=== PATIENT | female | born 1950 | race Caucasian/White ===

== ENCOUNTER 2019-12-15 10:32 | Outpatient (CLI) | payer MEDICARE, OTHER, SELFPAY ==
--- NOTE | 2019-12-15 10:41 | MM_ITS ---
WS: [id number] BILATERAL DIGITAL SCREENING MAMMOGRAPHY WITH CAD CLINICAL INFORMATION: SCREENING HISTORY: Screening mammogram. No current complaints. COMPARISON: TECHNIQUE: Bilateral CC and MLO views. FINDINGS: The breasts are composed of heterogeneous fibroglandular density tissue, which can limit the detectio n of small underlying mass lesions. Lucent center calcifications. Asymmetric density mid to posterior right breast measuring 9 mm. This is best seen on the MLO view. Recommend spot compression views and ultrasound if persistent. Left breast is unchanged. IMPRESSION: MM/[place] [id number] BI-RADS: 0-Incomplete: Need additional imaging evaluation FOLLOW UP: Need Additional Imaging
== END 2019-12-15 10:33 | disposition home or self-care (01) ==
PROVIDERS: Family Provider Internal Medicine; PCP Internal Medicine; Visit Provider Internal Medicine
DX: Z12.31 Encounter for screening mammogram for malignant neoplasm of breast (principal)
CPT/HCPCS: 77067

== ENCOUNTER 2019-12-24 12:09 | Outpatient (CLI) | payer MEDICARE, OTHER, SELFPAY ==
--- NOTE | 2019-12-24 14:31 | US_ITS ---
WS: [id number] RIGHT DIGITAL MAMMOGRAPHY WITH CAD CLINICAL INFORMATION: INCOMPLETE MAMMOGRAM TECHNIQUE: 4 views of the right breast were obtained. FINDINGS: The right breast is composed of heterogeneous fibroglandular density tissue, which can limit the dete ction of small underlying mass lesions. Previously described small asymmetric density inner quadrant right breast is persistent on spot compr ession views but less prominent. Vascular calcification. Ultrasound is pending. ULTRASOUND BREAST RIGHT TECHNIQUE: Ultrasound right breast focused area of concern. CLINICAL INFORMATION: INCOMPLETE MAMMOGRAM COMPARISON: None. FINDINGS: Ultrasound right breast performed from the 12 to 3:00 position. Normal underlying breast parenchyma. No evidence of pathologic mass or lesion. No lesions to target for biopsy. Normal examination. US/US breast RT limited* [id number] IMPRESSION: BI-RADS: 2-Benign FOLLOW UP: 1 Year Follow-up Recommend return to annual screening mammography.
== END 2019-12-24 12:10 | disposition home or self-care (01) ==
LOC: RADSHAW 12:09
PROVIDERS: Family Provider Internal Medicine; PCP Internal Medicine; Visit Provider Internal Medicine
DX: N63.12 Unspecified lump in the right breast, upper inner quadrant (principal); R92.2 Inconclusive mammogram
CPT/HCPCS: 76642; 77065

== ENCOUNTER → 2020-06-04 09:02 | Outpatient (BNVA) | payer MEDICARE, OTHER, SELFPAY | PROVIDERS: Family Provider Internal Medicine; PCP Internal Medicine; Visit Provider Nurse Practitioner Family | DX: N30.01 Acute cystitis with hematuria (principal) | CPT/HCPCS: 80053; 81003; 87077; 87086; 87186 ==

== ENCOUNTER 2021-02-16 10:03 | Outpatient (CLI) | payer MEDICARE, OTHER, SELFPAY ==
--- NOTE | 2021-02-16 10:07 | MM_ITS ---
WS: [id number] BILATERAL DIGITAL SCREENING MAMMOGRAPHY WITH CAD CLINICAL INFORMATION: SCREENING HISTORY: Screening mammogram. No current complaints. COMPARISON: December 15, 2019 TECHNIQUE: Bilateral CC and MLO views. FINDINGS: The breasts are composed of heterogeneous fibroglandular density tissue, which can limit the detectio n of small underlying mass lesions. No suspicious mass, asymmetry, calcifications, or architectural d istortion. No evidence of malignancy. Lucent centered calcifications left breast. Vascular calcificat ion. MM/[place] [id number] IMPRESSION: BI-RADS: 2-Benign FOLLOW UP: 1 Year Follow-up Recommend return to annual screening mammography.
== END 2021-02-16 10:04 | disposition home or self-care (01) ==
LOC: RADSHAW 10:06
PROVIDERS: PCP Internal Medicine; Visit Provider Internal Medicine
DX: Z12.31 Encounter for screening mammogram for malignant neoplasm of breast (principal)
CPT/HCPCS: 77067

== ENCOUNTER 2021-05-11 12:00 | Outpatient (CLI) | payer MEDICARE, OTHER, SELFPAY | END 2021-05-11 12:01 | disposition home or self-care (01) | LOC: SLEEP 05-12 11:51 | PROVIDERS: PCP Internal Medicine; Visit Provider Internal Medicine | DX: G47.33 Obstructive sleep apnea (adult) (pediatric) (principal) | CPT/HCPCS: G0399 ==

== ENCOUNTER → 2021-06-24 08:39 | Outpatient (BNVA) | payer MEDICARE, OTHER, SELFPAY | PROVIDERS: PCP Internal Medicine; Visit Provider Nurse Practitioner | DX: Z20.822 Contact with and (suspected) exposure to COVID-19 (principal) | CPT/HCPCS: 87635 ==

== ENCOUNTER 2022-03-15 09:16 | Outpatient (CLI) | payer MEDICARE, OTHER, SELFPAY ==
--- NOTE | 2022-03-15 09:32 | MM_ITS ---
WS: [id number]: MLO and CC views both breasts. 3D digital tomosynthesis is also included in this exam. Comparison made with prior exam of 09/13/2016, 10/09/2017, 11/05/2018, 12/15/2019 and 02/16/2021. Findings: There was no sign of mass, architectural distortion or suspicious calcification in either breast. Sc attered fibroglandular densities MM/[place] [id number] Impression: BI-RADS: 2-Benign FOLLOW-UP: 1 Year Follow-up This mammogram was also analyzed by the Computer Aided Detection System [employer].
== END 2022-03-15 09:17 | disposition home or self-care (01) ==
LOC: RAD 09:21
PROVIDERS: PCP Internal Medicine; Visit Provider Internal Medicine
DX: Z12.31 Encounter for screening mammogram for malignant neoplasm of breast (principal)
CPT/HCPCS: 77063; 77067

== ENCOUNTER 2023-03-20 09:06 | Outpatient (CLI) | payer MEDICARE, OTHER, SELFPAY ==
--- NOTE | 2023-03-20 09:18 | MM_ITS ---
WS: [id number] BILATERAL SCREENING DIGITAL TOMOSYNTHESIS MAMMOGRAM WITH CAD HISTORY: SCREENING COMPARISON: 03/15/2022, 02/16/2021 and 10/09/2017 Bilateral CC and MLO views with tomosynthesis and synthetic mammography submitted. Computer aided det ection analyzed. Breast composition: There are scattered areas of fibroglandular density. No suspicious masses, microc alcifications or architectural distortion. Benign calcification anterior LEFT breast. MM/[place] [id number] IMPRESSION: BI-RADS: 2-Benign FOLLOW UP: 1 Year Follow-up
== END 2023-03-20 09:07 | disposition home or self-care (01) ==
LOC: RAD 09:13
PROVIDERS: PCP Internal Medicine; Visit Provider Internal Medicine
DX: Z12.31 Encounter for screening mammogram for malignant neoplasm of breast (principal)
CPT/HCPCS: 77063; 77067

== ENCOUNTER → 2023-11-28 10:12 | Outpatient (BNVA) | payer MEDICARE, OTHER, SELFPAY | PROVIDERS: PCP Internal Medicine; Visit Provider Nurse Practitioner Family | DX: M54.2 Cervicalgia (principal); M25.511 Pain in right shoulder | CPT/HCPCS: 72040; 73030 ==

== ENCOUNTER 2024-01-03 11:30 | Outpatient (CLI) | payer MEDICARE, OTHER, SELFPAY ==
--- NOTE | 2024-01-03 11:45 | MR_ITS ---
WS: [id number] MRI RIGHT SHOULDER NONCONTRAST TECHNIQUE: Sagittal T2, coronal T1, T2 and proton density imaging. Axial gradient PDE imaging. CLINICAL INFORMATION: M25.511 - Pain in right shoulder COMPARISON: None. FINDINGS: Moderate to advanced degenerative arthritis AC joint with slight subacromial spurring. Mild downslopi ng acromion. Impingement on the distal supraspinatus. Subacromial and subdeltoid fluid. Advanced degenerative arthritis glenohumeral articulation. Subchondral cystic change involving the gr eater tuberosity. Small bursal surface and intrasubstance tear involving the distal supraspinatus wit h tendinopathy. Chronic thinning of the distal supraspinatus. Normal infraspinatus. Normal teres minor. Chronic thinning of the subscapularis tendon which appears intact. Biceps tendon appears intact within the bicipital groove. Intra-articular biceps tendon appea rs intact. Degenerative fraying of the glenoid labrum. Biceps labral anchor appears intact. IMPRESSION: 1. Moderate to advanced degenerative arthritis AC joint with slight subacromial spurring. Slight imp ingement on the distal supraspinatus. 2. Small amount of subacromial subdeltoid fluid. 3. Partial intrasubstance and bursal surface tear distal supraspinatus extending to the distal anter ior insertion. No tendon retraction. Chronic thinning of the supraspinatus. 4. Rotator cuff is otherwise intact. 5. Biceps tendon appears intact within the bicipital groove. 6. Moderate to advanced degenerative narrowing of the glenohumeral articulation. 7. Intra-articular biceps tendon appears intact.
== END 2024-01-03 11:31 | disposition home or self-care (01) ==
LOC: RAD 11:30
PROVIDERS: Absent Provider Internal Medicine; PCP Internal Medicine; Visit Provider Nurse Practitioner Family
DX: M19.011 Primary osteoarthritis, right shoulder (principal); R29.898 Other symptoms and signs involving the musculoskeletal system; M75.111 Incomplete rotator cuff tear or rupture of right shoulder, not specified as traumatic
CPT/HCPCS: 73221

== ENCOUNTER 2024-03-31 11:14 | Outpatient (CLI) | payer MEDICARE, OTHER, SELFPAY ==
--- NOTE | 2024-03-31 11:19 | MM_ITS ---
WS: [id number] BILATERAL 3D TOMOSYNTHESIS DIGITAL SCREENING MAMMOGRAPHY WITH CAD CLINICAL INFORMATION: SCREENING HISTORY: Screening mammogram. No current complaints. COMPARISON: 2022 TECHNIQUE: Bilateral CC and MLO views. FINDINGS: The breasts are composed of heterogeneous fibroglandular density tissue, which can limit the detectio n of small underlying mass lesions. No suspicious mass, asymmetry, calcifications, or architectural d istortion. No evidence of malignancy. Lucent centered calcification LEFT breast. A few incidental pun ctate calcifications. MM/[place] [id number] IMPRESSION: BI-RADS: 2-Benign FOLLOW UP: 1 Year Follow-up Recommend return to annual screening mammography.
== END 2024-03-31 11:15 | disposition home or self-care (01) ==
LOC: RAD 11:14
PROVIDERS: PCP Internal Medicine; Visit Provider Internal Medicine
DX: Z12.31 Encounter for screening mammogram for malignant neoplasm of breast (principal); R92.323 Mammographic fibroglandular density, bilateral breasts; R92.333 Mammographic heterogeneous density, bilateral breasts
CPT/HCPCS: 77063; 77067

== ENCOUNTER 2025-04-07 09:35 | Outpatient (CLI) | payer MEDICARE, OTHER, SELFPAY ==
--- NOTE | 2025-04-07 09:39 | MM_ITS ---
WS: [id number] BILATERAL 3D TOMOSYNTHESIS DIGITAL SCREENING MAMMOGRAPHY WITH CAD CLINICAL INFORMATION: SCREENING HISTORY: Screening mammogram. No current complaints. COMPARISON: 2023 TECHNIQUE: Bilateral CC and MLO views. FINDINGS: The breasts are composed of heterogeneous fibroglandular density tissue, which can limit the detection of small underlying mass lesions. No suspicious mass, asymmetry, calcifications, or architectural distortion. No evidence of malignancy. Lucent centered calcification LEFT breast. A few incidental punctate calcifications. MM/MM [facility] tomosynthesis [id number] IMPRESSION: DENSITY: The breasts are heterogeneously dense, which may obscure small masses. BI-RADS: 2 - Benign FOLLOW UP: 1 Year Follow-up Recommend return to annual screening mammography.
== END 2025-04-07 09:36 | disposition home or self-care (01) ==
LOC: RAD 09:37
PROVIDERS: PCP Internal Medicine; Visit Provider Family Medicine
DX: Z12.31 Encounter for screening mammogram for malignant neoplasm of breast (principal); R92.333 Mammographic heterogeneous density, bilateral breasts; R92.1 Mammographic calcification found on diagnostic imaging of breast
CPT/HCPCS: 77063; 77067

== ENCOUNTER 2025-10-10 16:09 | Emergency (ER) | payer MEDICARE, OTHER, SELFPAY ==
[2025-10-10] VITALS (7 sets, daily range): BP systolic 124–155; BP diastolic 62–82; PULSE 69–80; RESP 16–21; TEMP 36.7; O2SAT 95–100; BMI 31.6
--- OUTSIDE RECORDS SUMMARY | 2025-10-10 16:15 | XMS_ITS | Encounter Summary ---
Author Organization [facility] Address [address] [place] [address] Care Team Providers Care Electrician Outside Name Role Phone Cecilia Ford MD Primary Care Provid er Encounter Details Date Type Department Care Team (Latest Contact Info) Description 10/26/2006 Outpatient Historical [facility] Internal Medicine- [address] [address] [place] [id number] Cecilia Ford MD [address] [place] [address] Other Malaise and Fatigue (Primary Dx); Palpitations Social History Tobacco Use Types Packs/Day Years Used Date Smoking Tobacco: Never Assessed Comments Unknown Sex and Gender Information Value Date Recorded Sex Assigned at Not on file Legal Sex Female 6:34 AM [employer] Gender Identity Not on file Sexual Orientation Not on file documented as of this encounter Plan of Treatment Not on file documented as of this encounter Visit Diagnoses Diagnosis Other malaise and fatigue- Primary Palpitations documented in this encounter Care Teams Electrician Outside Relationship Specialty Start Date End Date Cecilia Ford MD PCP - General 08/07/03 documented as of this encounter
--- OUTSIDE RECORDS SUMMARY | 2025-10-10 16:15 | XMS_ITS | Data Portability ---
Author Organization NABIL Adria Avalos [facility], [facility], [facility] Address [address] [address] Care Team Providers Care Real Estate Clerk Name Role Phone DIAMOND HAGEN Primary Care Provider Assessment Encounter Date Assessment Date Assessment LastModified by Organization Details LastModified Time 07/01/2025 07/01/2025 Discussed kidney disease. Previously on one of her labs she did have a GFR less than 60 but this has improved with her most recent lab work. Patient was reassured. [email or web address] Not available 07/05/2025 22:15:38 Plan of Treatment Reminders Order Date Submit Date Provider Last Modified By Organization Details Last Modified Time Details Appointments OFFICE VISIT 15 2025 10:00A M Diamond Hagen MD Not available Not available Not available Lab hemoglobi n A1C/hemog lobin total, QN, blood 2024 025 [facility], [address], [facility] 1, [place], [address], 07/01/2025 11:54:21 hemoglobi n A1C/hemog lobin total, QN, blood 2024 025 [facility], [address] [facility], [facility] 1, [place], [address], 03/30/2025 12:25:15 microalbu min/creat inine, mass ratio, urine 2024 025 [facility]jo [facility], [address] [place] [address] [address], [address], [place], [address], 03/31/2025 05:52:03 CMP, serum or plasma 2024 025 [facility], [address], [address], [place], [address], 03/30/2025 12:25:07 hemoglobi n A1C/hemog lobin total, QN, blood 2023 024 [facility], [address], [address], [place], [address], 09/17/2024 10:21:28 CMP, serum or plasma 2023 024 [facility], [address], [address], [place], [address], 09/17/2024 10:42:20 lipid panel, blood 2023 024 [facility], [address], [address], [place], [address], 09/17/2024 10:42:22 CBC 2023 024 [facility], [address], [address], [place], [address], 09/17/2024 10:14:21 thyrotrop in, QN, serum or plasma 2023 024 [facility], [address], [address], [place], [address], 09/17/2024 11:37:22 Referral None recorded. Procedures None recorded. Surgeries None recorded. Imaging None recorded. Medication Orders Mounjaro 2.5 mg/0.5 mL subcutane ous pen injector 2024 025 [facility], [address], [place], [address], 06/18/2025 11:58:38 Patient TargetsNo targets recorded. Patient Instructions Encounter Date Encounter Id Patient Instructions Last Modified By Organization Details Last Modified Time 09/29/2024 [id number] struggles with anxiety; has tried regularly to get off alprazolam and can't; has been on xanax 40 years; will continue reviewed labs and a1c improved bp controlled she would like to establish with Dr. Hieu [email or web address] Not available 09/29/2024 12:18:01 Reason for Referral None Reported. Results Created Date Observation Date Name Description Value Unit Range Abnormal Flag Note LastModifiedBy Organization Detail LastModifiedTime 09/17/2009/17/2024 CBC WBC 6.4 x10 4.0-10 .5 Not Available [facility] [address] [facility] 1, [place], [address], 09/17/2024 10:14:21 09/17/20 24 09/17/2024 CBC RBC 4.44 x10 3.50-5 .50 Not Available [facility] [address] [facility] 1, [place], [address], 09/17/2024 10:14:21 09/17/20 24 09/17/2024 CBC HGB 13.0 g/dL 12.0-1 6.0 Not Available [facility] [address] [facility] 1, [place], [address], 09/17/2024 10:14:21 09/17/20 24 09/17/2024 CBC HCT 37.7 % 37.0-4 7.0 Not Available [facility] [address] [facility] 1, [place], [address], 09/17/2024 10:14:21 09/17/20 24 09/17/2024 CBC MCV 85.0 fL 80.0-9 9.9 Not Available [facility] [address] [facility] 1, [place], [address], 09/17/2024 10:14:21 09/17/20 24 09/17/2024 CBC MCH 29.3 pg 27.0-3 2.0 Not Available [facility] [address] [facility] [address] [facility] 1, [place], [address], 09/17/2024 10:14:21 09/17/20 24 09/17/2024 CBC MCHC 34.5 g/dL 32.0-3 6.0 Not Available [facility] [address] [facility] 1, [place], [address], 09/17/2024 10:14:21 09/17/20 24 09/17/2024 CBC RDW 14.4 % 11.5-1 4.5 Not Available [facility] [address] [facility], [place], [address], 09/17/2024 10:14:21 09/17/20 24 09/17/2024 CBC plt 216.9 x10 140.0- 451.0 Not Available [facility] [address] [facility] 1, [place], [address], 09/17/2024 10:14:21 09/17/20 24 09/17/2024 CBC lymphocytes % 23.4 % 20.0-5 0.0 Not Available [facility] [address] [facility] 1, [place], [address], 09/17/2024 10:14:21 09/17/20 24 09/17/2024 CBC granulcytes % 63.2 % 30.0-7 0.0 Not Available [facility] [address] [facility] 1, [place], [address], 09/17/2024 10:14:21 09/17/20 24 09/17/2024 CBC monocytes % 9.9 % 2.0-16 .0 Not Available [facility] [address] [facility] [address] [facility] 1, [place], [address], 09/17/2024 10:14:21 09/17/20 24 09/17/2024 CBC granulcytes# 4.1 x10 Not Dedra ilable [facility] [address] [facility] 1, [place], [address], 09/17/2024 10:14:21 09/17/20 24 09/17/2024 CBC lymphocytes # 1.5 x10 Not Available [facility] [address] [facility] 1, [place], [address], 09/17/2024 10:14:21 09/17/20 24 09/17/2024 CBC monocytes # 0.6 x10 Not Avai lable [facility] [address] [facility], [place], [address], 09/17/2024 10:14:21 09/17/20 24 09/17/2024 HBA1C hemaglobin A1C 6.5 4.2-6. 5 Not Available [facility] [address] [facility] 1, [place], [address], 09/17/2024 10:21:28 09/17/20 24 09/17/2024 CMP (FEMA LE) glucose 113.0 mg/dL 60.0-9 9.0 high Not Available [facility] [address] [facility] 1, [place], [address], 09/17/2024 10:42:20 09/17/20 24 09/17/2024 CMP (FEMA LE) BUN (blood urea nitrogen) 13.0 mg/dL 10.0-2 6.0 Not Available [facility] [address] [facility] 1, [place], [address], 09/17/2024 10:42:20 09/17/20 24 09/17/2024 CMP (FEMA LE) creatinine (serum) 1.0 mg/dL 0.4-1. 5 Not Available [facility] [address] [facility], [place], [address], 09/17/2024 10:42:20 09/17/20 24 09/17/2024 CMP (FEMA LE) BUN/creatini ne ratio 13.00 ratio Not Available [facility] [address] [facility] 1, [place], [address], 09/17/2024 10:42:20 09/17/20 24 09/17/2024 CMP (FEMA LE) eGFR calculated 57.9 Not Available [facility] [address] [facility] 1, [place], [address], 09/17/2024 10:42:20 09/17/20 24 09/17/2024 CMP (FEMA LE) total protein 7.4 g/dL 6.0-8. 5 Not Available [facility] [address] [facility] 1, [place], [address], 09/17/2024 10:42:20 09/17/20 24 09/17/2024 CMP (FEMA LE) total bilirubin 0.7 mg/dL 0.2-1. 3 Not Available [facility] [address] [facility] 1, [place], [address], 09/17/2024 10:42:20 09/17/20 24 09/17/2024 CMP (FEMA LE) albumin 4.4 g/dL 3.5-5. 5 Not Available [facility] [address] [facility], [place], [address], 09/17/2024 10:42:20 09/17/20 24 09/17/2024 CMP (FEMA LE) globulin 3.0 calc Not Available [facility] [address] [facility], [place], [address], 09/17/2024 10:42:20 09/17/20 24 09/17/2024 CMP (FEMA LE) AST (SGOT) 26.0 U/L 0.0-46 .0 Not Available [facility] [address] [facility], [place], [address], 09/17/2024 10:42:20 09/17/20 24 09/17/2024 CMP (FEMA LE) altv (SGPT) 27.0 U/L 13.0-6 9.0 normal Not Available [facility] [address] [facility], [place], [address], 09/17/2024 10:42:20 09/17/20 24 09/17/2024 CMP (FEMA LE) A/G ratio 1.5 ratio Not Available [facility] [address] [facility] 1, [place], [address], 09/17/2024 10:42:20 09/17/20 24 09/17/2024 CMP (FEMA LE) ALP phos 81.0 U/L 30.0-1 40.0 normal Not Available [facility] [address] [facility] 1, [place], [address], 09/17/2024 10:42:20 09/17/20 24 09/17/2024 CMP (FEMA LE) calcium 9.6 mg/dL 8.4-10 .5 Not Available [facility] [address] [facility] 1, [place], [address], 09/17/2024 10:42:20 09/17/20 24 09/17/2024 CMP (FEMA LE) sodium 137.0 mmol/ L 136.0- 145.0 Not Available [facility] [address] [facility] 1, [place], [address], 09/17/2024 10:42:20 09/17/20 24 09/17/2024 CMP (FEMA LE) potassium 4.4 mmol/ L 3.5-5. 1 Not Available [facility] [address] [facility], [place], [address], 09/17/2024 10:42:20 09/17/20 24 09/17/2024 CMP (FEMA LE) chloride 102.0 mmol/ L 98.0-1 10.0 normal Not Available [facility] [address] [facility] 1, [place], [address], 09/17/2024 10:42:20 09/17/20 24 09/17/2024 CMP (FEMA LE) C02 31.0 mmol/ L 22.0-3 1.0 Not Available [facility] [address] [facility] 1, [place], [address], 09/17/2024 10:42:20 09/17/20 24 09/17/2024 CMP (FEMA LE) anion gap 4.0 calc Not Available [facility] [address] [facility] 1, [place], [address], 09/17/2024 10:42:20 09/17/20 24 09/17/2024 CMP (FEMA LE) osmolality 284.0 calc Not Available [facility] [address] [facility] 1, [place], [address], 09/17/2024 10:42:20 09/17/20 24 09/17/2024 LIPID PROFI LE (FEMA LE) cholesterol 200.0 mg/dL 0.0-20 0.0 Not Available [facility] [address] [facility], [place], [address], 09/17/2024 10:42:22 09/17/20 24 09/17/2024 LIPID PROFI LE (FEMA LE) trig 152.0 mg/dL 0.0-15 0.0 high Not Available [facility] [address] [address], [place], [address], 09/17/2024 10:42:22 09/17/20 24 09/17/2024 LIPID PROFI LE (FEMA LE) HDL - direct 60.0 mg/dL >40.0 Not Available [facility] [address] [address], [place], [address], 09/17/2024 10:42:22 09/17/20 24 09/17/2024 LIPID PROFI LE (FEMA LE) VLDL - direct 30.4 mg/dL Not Available [facility] [address] [address], [place], [address], 09/17/2024 10:42:22 09/17/20 24 09/17/2024 LIPID PROFI LE (FEMA LE) LDL - direct 109.6 mg/dL 0.0-13 0.0 Not Available [facility] [address] [address], [place], [address], 09/17/2024 10:42:22 09/17/20 24 09/17/2024 TSH TSH 2.07 uIU/m L 0.49-3 .82 Not Available [facility] [address] [address], [place], [address], 09/17/2024 11:37:22 03/30/20 25 03/30/2025 CMP (FEMA LE) glucose 117.0 mg/dL 60.0-9 9.0 high Not Available [facility] [address] [address], [place], [address], 03/30/2025 12:25:07 03/30/20 25 03/30/2025 CMP (FEMA LE) BUN (blood urea nitrogen) 15.0 mg/dL 10.0-2 6.0 Not Available [facility] [address] [facility], [place], [address], 03/30/2025 12:25:03/30/20 25 03/30/2025 CMP (FEMA LE) creatinine (serum) 0.9 mg/dL 0.4-1. 5 Not Available [facility] [address] [facility] 1, [place], [address], 03/30/2025 12:25:03/30/20 25 03/30/2025 CMP (FEMA LE) BUN/creatini ne ratio 16.67 ratio Not Available [facility] [address] [facility] 1, [place], [address], 03/30/2025 12:25:03/30/20 25 03/30/2025 CMP (FEMA LE) eGFR calculated 65.4 Not Available [facility] [address] [facility] 1, [place], [address], 03/30/2025 12:25:03/30/20 25 03/30/2025 CMP (FEMA LE) total protein 7.2 g/dL 6.0-8. 5 Not Available [facility] [address] [address], [place], [address], 03/30/2025 12:25:03/30/20 25 03/30/2025 CMP (FEMA LE) total bilirubin 0.8 mg/dL 0.2-1. 3 Not Available [facility] [address] [address], [place], [address], 03/30/2025 12:25:03/30/20 25 03/30/2025 CMP (FEMA LE) albumin 4.1 g/dL 3.5-5. 5 Not Available [facility] [address] [address], [place], [address], 03/30/2025 12:25:03/30/20 25 03/30/2025 CMP (FEMA LE) globulin 3.1 calc Not Available [facility] [address] [facility] 1, [place], [address], 03/30/2025 12:25:03/30/20 25 03/30/2025 CMP (FEMA LE) AST (SGOT) 21.0 U/L 0.0-46 .0 Not Available [facility] [address] [facility] 1, [place], [address], 03/30/2025 12:25:03/30/20 25 03/30/2025 CMP (FEMA LE) altv (SGPT) 21.0 U/L 13.0-6 9.0 normal Not Available [facility] [address] [facility] 1, [place], [address], 03/30/2025 12:25:03/30/20 25 03/30/2025 CMP (FEMA LE) A/G ratio 1.3 ratio Not Available [facility] [address] [facility] 1, [place], [address], 03/30/2025 12:25:03/30/20 25 03/30/2025 CMP (FEMA LE) ALP phos 74.0 U/L 30.0-1 40.0 normal Not Available [facility] [address] [facility] 1, [place], [address], 03/30/2025 12:25:03/30/20 25 03/30/2025 CMP (FEMA LE) calcium 9.6 mg/dL 8.4-10 .5 Not Available [facility] [address] [facility], [place], [address], 03/30/2025 12:25:07 03/30/20 25 03/30/2025 CMP (FEMA LE) sodium 137.0 mmol/ L 136.0- 145.0 Not Available [facility] [address] [facility] 1, [place], [address], 03/30/2025 12:25:03/30/20 25 03/30/2025 CMP (FEMA LE) potassium 4.3 mmol/ L 3.5-5. 1 Not Available [facility] [address] [facility], [place], [address], 03/30/2025 12:25:03/30/20 25 03/30/2025 CMP (FEMA LE) chloride 104.0 mmol/ L 98.0-1 10.0 normal Not Available [facility] [address] [facility] 1, [place], [address], 03/30/2025 12:25:03/30/20 25 03/30/2025 CMP (FEMA LE) C02 29.0 mmol/ L 22.0-3 1.0 Not Available [facility] [address] [facility], [place], [address], 03/30/2025 12:25:07 03/30/20 25 03/30/2025 CMP (FEMA LE) anion gap 4.0 calc Not Available [facility] [address] [facility] 1, [place], [address], 03/30/2025 12:25:03/30/20 25 03/30/2025 CMP (FEMA LE) osmolality 284.9 calc Not Available [facility] [address] [facility] [address] [facility] 1, [place], [address], 03/30/2025 12:25:03/30/20 25 03/30/2025 HBA1C hemaglobin A1C 6.2 4.2-6. 5 Not Available [facility] [address], [place], [address], 03/30/2025 12:25:15 03/30/20 25 03/31/2025 ALBUM IN, RANDO M URINE W/CRE ATINI NE creatinine, random urine 117 mg/dL 20-275 normal Not Available [facility] [address] [place], [address], 03/31/2025 05:52:03 03/30/20 25 03/31/2025 ALBUM IN, RANDO M URINE W/CRE ATINI NE albumin, urine 0.7 mg/dL see note: normal Refer ence Range : Refer ence Range Not estab lishe d Not Available [address] [address] [place], [address], 03/31/2025 05:52:03 03/30/20 25 03/31/2025 ALBUM IN, RANDO M URINE W/CRE ATINI NE albumin/crea tinine ratio, random urine 6 mg/g_ creat <30 normal The ADA defin es abnor malit ies in album in excre tion as follo ws: Album inuri a Categ ory Resul t (mg/g creat inine ) Geni l to Mildl y incre ased <30 Moder ately incre ased 30-29 9 Sever domenic incre ased > OR = 300 The ADA recom mends that at least two of three speci mens colle cted withi n a 3-6 month perio d be abnor mal befor e consi mykel g a patie nt to be withi n a diagn ostic categ ory. Not Available [address] [address] [place], [address], 03/31/2025 05:52:03 07/01/2007/01/2025 HBA1C hemaglobin A1C 6.1 4.2-6. 5 Not Available [facility] [address] [facility] [address], [place], [address], 07/01/2025 11:54:20 04/02/20 25 01/03/2024 MRI, shoul jamee, w/o contr ast No observ ation record ed. [email or web address] Not Available 04/03 17:42:52 04/07/20 25 04/07/2025 MAMMO , scree miki, digit al, bilat eral No observ ation record ed. [email or web address] [place] [address] [address] [place], [address], 04/08/2025 16:15:42 Result Notes None recorded. Problems Name Problem SNOMED Code Status Onset Date Resolution Date Notes Provider Name and Address Organization Details Recorded Time Narendranurismyrna rico type IIa hyperlipop roteinemia 346772182 Active 2021 HYPERCHOLE STEROLEMIA ; Recorded 08/02/2022 10:42AM by Josefina Mahoney RN, Office Visit; Promoted; acuity set as *; PASCUAL fay [facility] 3 15:11:50 Fibromyalg ia 089062314 Active 2022 Fibromyalg ia; 12/06/2022 10:41AM by Josefina Mahoney RN, Office Visit; Promoted; acuity set as *; PASCUAL fay [facility] 3 15:12:27 Hyperchole sterolemia 06032104 Active 2022 Hyperchole sterolemia ; 12/06/2022 10:41AM by Josefina Mahoney RN, Office Visit; Promoted; acuity set as *; PASCUAL fay [facility] 3 15:12:06 Irritable bowel syndrome 22101834 Active 2022 IRRITABLE BOWEL SYNDROME; Recorded 12/06/2022 10:41AM by Josefina Mahoney RN, Office Visit; Promoted; acuity set as *; PASCUAL fay [facility] 3 15:12:32 Anxiety 33826823 Active 2022 PASCUAL LINNOswaldo fay [facility] 3 15:11:39 Atrial fibrillati on 61450249 Active 2022 PASCUAL fay, [facility] 3 15:11:36 Essential hypertensi on 74817084 Active 2023 Diamond Hagen MD [address] [place] [address] 5, [facility] 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 5 14:07:08 Type 2 diabetes mellitus 54049593 Active 2024 Diamond Hagen MD [address] [place] [address] 5, [facility] 5 14:07:02 Recurrent major depression in partial remission 32947010 Active 2024 Diamond Hagen MD [address] [place] [address] 5, [facility] 5 14:11:13 Digital mucous cyst 464678715 Active 2024 Diamond Hagen MD [address] [place] [address] 5, [facility] 5 17:34:23 Well controlled type 2 diabetes mellitus 536964581 Active 2024 Diamond Hagen MD [address] [place] [address] 5, [facility] 5 11:13:01 Problem Notes None recorded. Procedures Surgical History Date Name Laterality Status Provider Name and Address Organization Details Recorded Time Hysterectomy completed PASCUAL HAIR [facility] 06/15/2023 15:12:50 Imaging Results None recorded. Procedure Notes None recorded. Medical Equipment None Reported. Allergies Allergen ID Allergen Name Allergen Category Reaction Reaction Severity Criticality Documentation Date Start Date Code Code System Note Provider Name and Address Organization Details Recorded Time 63060 Substance with sulfonami de structure and antibacte rial mechanism of action (substanc e) medicatio n rash mild low 05/19/2023 [id number] SNOMED [facility] 4 14:06:06 Medications Name Sig Start Date Stop Date Status Note LastModified by Organization Details LastModified Time imipramin e 50 mg tablet TAKE ONE TABLET BY MOUTH EVERY DAY AT BEDTIME 2024 active Not Available Not Available Not Avai lable prednison e 10 mg tablet 09/29 completed Not Available Not Available Not Available doxycycli ne hyclate 100 mg capsule 09/29 completed Not Available Not Available Not Available ketoconaz ole 2 % shampoo APPLY TOPICALL Y TO FACE, SCALP AND EARS LEAVE ON FOR 10 TO 20 MINUTES, THEN RINSE IN SHOWER. USE ONE TO TWO TIMES WEEKLY 10/23 completed Not Available Not Available Not Available atorvasta tin 10 mg tablet TAKE ONE TABLET BY MOUTH DAILY 2024 active Not Available Not Available Not Avai lable azithromy juan 250 mg tablet TAKE 2 TABLETS (500 MG) BY ORAL ROUTE ONCE DAILY FOR 1 DAY THEN 1 TABLET (250 MG) BY ORAL ROUTE ONCE DAILY FOR 4 DAYS 03/30 completed Not Available Not Available Not Available metoprolo l succinate ER 50 mg tablet,ex tended release 24 hr TAKE THREE TABLETS BY MOUTH DAILY active Not Available Not Available No t Available prednison e 20 mg tablet 09/29 completed Not Available Not Available Not Available metoprolo l succinate ER 100 mg tablet,ex tended release 24 hr TAKE TWO TABLETS BY MOUTH EVERY DAY 09/29 completed Not Available Not Available Not Available tramadol 50 mg tablet TAKE ONE TABLET BY MOUTH EVERY 6 HOURS NEEDED FOR PAIN 08/30 completed Not Available Not Available Not Available prednison e 10 mg tablets in a dose pack TAKE BY MOUTH DIRECTED PER PACKAGE INSTRUCT IONS 09/29 completed Not Available Not Available Not Available cyclopent olate 1 % eye drops PLACE 1 DROP IN THE RIGHT EYE TWICE DAILY 08/30 completed Not Available Not Available Not Available oxycodone -acetamin ophen 5 mg-325 mg tablet TAKE 1 BY MOUTH GIVE 6 HOME NEEDED PAIN 08/30 completed Not Available Not Available Not Available alprazola m 0.25 mg tablet TAKE ONE TABLET BY MOUTH FOUR TIMES DAILY NEEDED active Not Available Not Available No t Available prednisol one acetate 1 % eye drops,todd pension PLACE ONE DROP IN THE RIGHT EYE TWICE DAILY 08/30 completed Not Available Not Available Not Available diclofena c sodium 75 mg tablet,de layed release TAKE ONE TABLET BY MOUTH TWICE DAILY 03/30 completed Not Available Not Available Not Available fluocinon dora 0.05 % topical solution APPLY TOPICALL Y TO ITCHY AREAS OF SCALP AND BEHIND EARS TWICE DAILY NEEDED 07/01 completed Not Available Not Available Not Available imipramin e 10 mg tablet TAKE ONE TABLET BY MOUTH AT BEDTIME active Not Available Not Available No t Available atropine 1 % eye drops PLACE 1 DROP IN THE RIGHT EYE TWICE DAILY 08/30 completed Not Available Not Available Not Available fluticaso ne propionat e 50 mcg/actua tion nasal spray,todd pension at bedtime 08/30 completed Not Available Not Available Not Available imipramin e 25 mg tablet Take 2 tablets twice a day by oral route for 90 days. 08/30 completed Not Available Not Available Not Available atorvasta tin daily 09/10 completed cs/smf; 14392; Recorded 11/01/19 23 3:30PM by Sandy Mahoney RN (Authori patrice through Carter Bueno DO), Refill Request; Refill Quantity : 30; Tablet; Not Available Not Available Not Available metoprolo l tartrate three times daily 09/10 completed CS/sk; 97341; Recorded 01/26/20 22 9:06AM by Tania St (Authori zed through Carter Bueno DO), Office Visit; Refill Quantity : 60; Tablet; Not Available Not Available Not Available imipramin e HCl q hs 09/10 completed DOC VO JR/bh; 173; Recorded 12/12/19 12:24PM by Kisha Carmen RN (Authori zed through Ramírez Licea MD), Refill Request; Refill Quantity : 0; Not Available Not Available Not Available Claritin daily 08/30 completed otc prn Not Available Not Available Not Available alprazola m four times daily, as needed 09/10 completed Recorded 01/03/20 2:35PM by Darrius Carpio DO, Refill Request; Refill Quantity : 120; Tablet; Not Available Not Available Not Available peg 3350-elec trolytes 236 gram-22.7 4 gram-6.74 gram-5.86 gram solution 03/30 completed Not Available Not Available Not Available Ozempic 0.25 mg or 0.5 mg (2 mg/1.5 mL) subcutane ous pen injector INJECT 0.25 MG UNDER SKIN WEEKLY FOR FOUR WEEKS, THEN INCREASE TO 0.5 MG UNDER SKIN WEEKLY 08/30 completed 0.25 weekly x4 weeks then increase 0.5 weekly Not Available Not Available Not Available Mounjaro 2.5 mg/0.5 mL subcutane ous pen injector Inject 2.5 mg every week by subcutan eous route. 04/07 completed pt did not tolerate it well and Dr. Hagen said pts a1c was okay for pt to just do diabetic diet Not Available Not Available Not Available Ozempic 0.25 mg or 0.5 mg (2 mg/3 mL) subcutane ous pen injector INJECT 0.25 MG UNDER SKIN WEEKLY FOR FOUR WEEKS, THEN INCREASE TO 0.5 MG UNDER SKIN WEEKLY 08/30 completed 0.25 weekly x4 weeks then increase 0.5 weekly Not Available Not Available Not Available Vitals Date Recorded Body height Body mass index (BMI) Body weight Oxygen saturation Heart rate Respiratory rate Body temperature Systolic And Diastolic Provider Name and Address Organization Details Last Updated DateTime 5 163.83 cm 34.5 kg/m2 12494.8 4 g 95 % 80 /min 16 /min 98.2 [degF] 150/90 mm[Hg] Samantha Moscoso [facility] 5 17:58:25 Date Recorded Body height Body mass index (BMI) Body weight Body temperature Oxygen saturation Heart rate Systolic And Diastolic Provider Name and Address Organization Details Last Updated DateTime 5 163.83 cm 34.8 kg/m2 89526.0 3 g 97.1 [degF] 97 % 81 /min 132/70 mm[Hg] [facility] 5 10:58:32 Date Recorded Body height Body mass index (BMI) Body weight Body temperature Oxygen saturation Heart rate Systolic And Diastolic Provider Name and Address Organization Details Last Updated DateTime 5 163.83 cm 32.8 kg/m2 76971.9 2 g 97.3 [degF] 97 % 76 /min 124/86 mm[Hg] [facility] 5 10:56:42 Date Recorded Body height Body mass index (BMI) Body weight Respiratory rate Heart rate Oxygen saturation Systolic And Diastolic Provider Name and Address Organization Details Last Updated DateTime 4 163.83 cm 34.8 kg/m2 90685.0 3 g 20 /min 89 /min 94 % 122/64 mm[Hg] JOSEFINA MAHONEY [facility] 4 11:53:34 Social History Question Answer Notes LastModified by Organizat ion Details LastModified Time Tobacco Smoking Status Never Smoker Samantha Danis [facility] 10/23/2024 17:54:03 What Is Your Level Of Caffeine Consumption? Moderate Information not available 03/30/2025 What Was The Date Of Your Most Recent Tobacco Screening? 07/01/2025 [email or web address] Information not available 07/01/2025 Sex: Unknown Functional Status Question Answer Note LastModified by Organization D etails LastModified Time What is your level of alcohol consumption? None Information not available 03/30/2025 Mental Status None recorded. Family History Nothing Reported. Medical History No medical history recorded. Gynecological HistoryNo gynecological history recorded. Obstetrics History GPAL:G 0 P 0 0 0 0 Immunizations Vaccine Type Date Status Note Provider Nam e and Address Organization Details Recorded Time Influenza, split virus, trivalent, preservative 5 completed Not Available [facility] 05/19/2023 02:49:38 Influenza, split virus, trivalent, preservative 6 completed Not Available [facility] 05/19/2023 02:49:38 Influenza, split virus, trivalent, preservative 7 completed Not Available [facility] 05/19/2023 02:49:38 Pneumococcal conjugate PCV 13 7 completed Not Available [facility] 05/19/2023 02:49:38 pneumococcal polysaccharide PPV23 8 completed Not Available [facility] 05/19/2023 02:49:38 Influenza, split virus, trivalent, preservative 1 completed Not Available [facility] 05/19/2023 02:49:38 zoster recombinant 2 completed Tamera fay [facility] 05/17/2024 14:05:58 zoster recombinant 2 completed Tamera fay [facility] 05/17/2024 14:05:58 Influenza, high-dose, quadrivalent, PF 2 completed Tamera Plyun null [facility] 05/17/2024 14:05:58 Influenza, high-dose, quadrivalent, PF 1 completed Tamera fay [facility] 05/17/2024 14:05:58 Influenza, adjuvanted, quadrivalent, PF 3 completed Tamera fay [facility] 05/17/2024 14:05:58 COVID-19, mRNA, LNP-S, PF, 100 mcg/0.5mL dose or 50 mcg/0.25mL dose 1 completed [facility] 05/17/2024 14:05:58 COVID-19, mRNA, LNP-S, PF, 100 mcg/0.5mL dose or 50 mcg/0.25mL dose 1 completed [facility] 05/17/2024 14:05:58 Tdap 4 completed Tamera Pliler [facility] 05/17/2024 14:05:58 zoster live 3 completed Tamera Pliler [facility] 05/17/2024 14:05:58 Influenza, high-dose, trivalent, PF 8 completed Tamera Pliler [facility] 05/17/2024 14:05:58 Influenza, high-dose, trivalent, PF 9 completed Tamera Pliler [facility] 05/17/2024 14:05:58 Influenza, split virus, trivalent, preservative 4 completed Tamera Pliler [facility] 05/17/2024 14:05:58 Influenza, split virus, trivalent, preservative 3 completed [place] Pliler [facility] 05/17/2024 14:05:58 Influenza, high-dose, trivalent, PF 4 completed Not Available [facility] 07/01/2025 10:48:08 Past Encounters Encounter ID Performer Location Encounter Start Date Encounter Closed Date Diagnosis/Indication Diagnosis SNOMED-CT Code Diagnosis ICD10 Code Diagnosis IMO Codes Diagnosis Note [id number] Carter Bueno DO [facility] ([facility]) [address] [place] [address] 5 03/05/2023 09:56:58 03/05/2023 18:41:13 Type 2 diabetes mellitus without complication 231917696 E11.9 Atrial fibrillation 4943 6004 I48.91 Hyperlipidemia 22022250 E78.00 Anxiety 08922268 F41.9 Depressive disorder 3548 9007 F32.A [id number] Carter Ximena [facility] ([facility]) [address] [place] [address] 5 09/03/2023 10:29:07 09/04/2023 10:41:11 Hypercholesterolemia 48285594 E78.00 Type 2 jeannine betes mellitus without complication 664745644 E11.9 Depressive disorder 3548 9007 F32.A [id number] Carter Ximena [facility]) [address] [place] [address] 5 09/10/2023 10:22:59 09/10/2023 14:32:30 Type 2 diabetes mellitus without complication 944178012 E11.9 Anxiety 62620527 F41.9 [id number] Carter Ximena [facility]) [address] [place] [address] 5 03/18/2024 10:51:56 03/19/2024 09:46:07 Type 2 diabetes mellitus without complication 082590874 E11.9 [id number] Carter Ximena [facility]) [address] [place] [address] 5 03/24/2024 10:31:57 03/24/2024 13:44:04 Anxiety 18951739 F41.9 Atrial fibrillation 4943 6004 I48.91 Depressive disorder 3548 9007 F32.A Hypercholesterolemia 136 64112 E78.00 Type 2 jeannine betes mellitus without complication 364091085 E11.9 Essential hypertension 69243769 I10 Benzodiaze pine dependence 728754852 F13.20 [id number] Carter Bueno [facility] ([facility]) [address] [place] [address] 5 09/17/2024 09:57:02 09/22/2024 09:52:41 Hypercholesterolemia 93979118 E78.00 Type 2 jeannine betes mellitus without complication 685227561 E11.9 Depressive disorder 3548 9007 F32.A [id number] Carter Bueno DO [facility] ([facility]) [address] [place] [id number] 5 09/29/2024 11:45:10 09/29/2024 12:25:32 Benzodiazepine dependence 060092524 F13.20 Fibromyalgia 242574932 M 79.7 Hyperglyce eleanor due to type 2 diabetes mellitus 7229216607 61708 E11.65 [id number] Diamond Hagen MD [facility] ([facility]) [address] [place] [id number] 5 10/23/2024 17:50:56 10/25/2024 18:28:09 Acute bronchitis 82305109 J20.9 Patient presented with symptoms of viral upper respirator y infection. Advised to drink plenty of fluids, run a cool-mist humidifier in room at night, gargle salt water for sore throat, and get plenty of rest. Patient should avoid over-exert ion and reduce exposure to irritants such as smoke, cold, dry air, and dust. Treatment currently involves symptomati c relief. Patient may take acetaminop hen or ibuprofen as directed to reduce fever and body aches. Antihistam ine and decongesta nt usage was discussed and recommenda tions made. Patient understood these instructio ns and will follow up in the office in 7-10 days if symptoms not improving. [id number] Diamond Hagen MD [facility] ([facility]) [address] [place] [id number] 03/30/2025 10:50:35 03/30/2025 11:45:39 Type 2 diabetes mellitus 97387255 E11.9 [id number] Patient's A1c was 6.5% and is consistent with type 2 diabetes. The patient was unaware of this diagnosis. Check A1c as well as kidney function labs. GFR was less than 60. Patient is interested in medication s and weight loss tried Ozempic but she is willing to try Mounjaro see if she tolerates it better. Chronic ki dney disease stage 3A 558828945 N18.31 [id number] Check kidney labs as above Anxiety 54183531 F41.9 Sinew current medication s. Benzodiaze pine dependence 210049435 F13.20 Essential hypertension 46076850 I10 Blood pressure is managed with current meds Recurrent major depression in partial remission 03929637 F33.41 3942998 Mood is stable Digital mucous cyst 4040 09811 M67.471 [id number] Monitor. We could drain this cyst if patient desires. [id number] Diamond Hagen MD [facility] ([facility]) [address] [place] [address] 07/01/2025 10:47:52 07/01/2025 11:35:33 Essential hypertension 19887674 I10 Blood pressure is managed with current meds Atrial fibrillation 4943 6004 I48.91 Controlled . The patient is currently not on blood thinner. The patient's risk factors have increased and she does have a Toby Vasc of 3. Patient needs to discuss this with her cardiologi st if they have not recommende d anticoagul ation at this time. Well contr olled type 2 diabetes mellitus 656987026 E11.9 [id number] The patient is due for A1c so we will recheck it today. Health Concerns Section Related Observation LastModified by Organization Detai ls LastModified Time None Recorded Concern Status LastModified by Organization Details LastModified Time None Recorded Advance Directives Directive None Recorded Payers Insurance Date Sequence Insurance Name Policy Number Policy Nuñez Covered Member ID Nuñez Member ID Guarantor Name 06/28/2025 1 [place] Unique Goodman [id number] Unique Goodman 07/06/2025 2 [employer] (MEDICARE SUPPLEMENT) Unique Goodman [id number] Unique Goodman 06/28/2025 [place] - [place] A - [facility] (MEDICARE) Unique Goodman [id number] 6 Unique Goodman Notes Date Note Type Note Provider Name and Address Organization Details Recorded Time 09/29/2024 text/html DiabetesReported by PatientHPIFor duration, patient reportschronic. For control, patient reportsusually well controlled. For compliance, patient reportscompliant with medications,compliant with follow-up visits, andcompliant with diet.ROS as noted in the HPI Carter Bueno DO [address] [place] [address], [phone], [facility] 09/29/2024 12:19:57 10/23/2024 text/html Sinusitis/Allerg yRepor dulce maria by PatientROS as noted in the HPI walk in patientpatient is here today for a sore throat, headache, congestion in her chest that started 4 days ago and then today she lost her voice. Diamond Hagen MD [address] [place] [address], [phone], [facility] 10/25/2024 15:25:44 03/30/2025 text/html Pt establishing care today: The patient was previously seeing Dr. Bueno.Pt has a new growth on the right foot, 4th toe. It is skin color, without pain. She would like to know if a referral to [facility] is necessary. Pt has MR of shoulder from [facility] on 01/03/24 when she was having right shoulder pain. Patient states that the pain has improved. Patient reports that her chronic medical issues are stable on current medications. Patient states that she has had history of elevated blood sugars. Diamond Hagen MD [address] [place] [address], [phone], [facility] 03/30/2025 17:34:46 07/01/2025 text/html Pt here today for 3 month follow upPatient states that her chronic medical issues are stable and her blood sugars are doing well. Patient has been tolerating her medications without any issues. The patient would like to have her A1c checked today. Patient is also concerned about chronic kidney disease that was reported on her medical records. Diamond Hagen MD [address] [place] [address], [phone], [facility] 07/05/2025 22:15:49 OBGyn Episode No OBEpisode recorded.
--- OUTSIDE RECORDS SUMMARY | 2025-10-10 16:15 | XMS_ITS | Encounter Summary ---
Author Organization [facility] Address [address] [place] [address] Care Team Providers Care Negotiations Director Name Role Phone Cecilia Ford MD Primary Care Provid er Encounter Details Date Type Department Care Team (Latest Contact Info) Description 10/11/1998 Outpatient Historical [facility] INTERNAL MED EdinsonIsreal MD NO ADDRESS ON FILE Irritable bowel syndrome (Primary Dx); Anxiety state, unspecified; Myalgia and myositis, unspecified Social History Tobacco Use Types Packs/Day Years Used Date Smoking Tobacco: Never Assessed Comments Unknown Sex and Gender Information Value Date Recorded Sex Assigned at Not on file 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
--- OUTSIDE RECORDS SUMMARY | 2025-10-10 16:15 | XMS_ITS | Encounter Summary ---
Author Organization [facility] Address [address] [place] [address] Care Team Providers Care Nuclear Engineering Technician Name Role Phone Cecilia Ford MD Primary Care Provid er Encounter Details Date Type Department Care Team (Latest Contact Info) Description 05/29/2001 Outpatient Historical [facility] PEDIATRIC REGISTERED NURSE 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
--- OUTSIDE RECORDS SUMMARY | 2025-10-10 16:15 | XMS_ITS | Encounter Summary ---
Author Organization [facility] Address [address] [place] [address] Care Team Providers Care Supervisor Telephone Information Name Role Phone Cecilia Ford MD Primary Care Provid er Encounter Details Date Type Department Care Team (Latest Contact Info) Description 04/03/2006 Outpatient Historical [facility] Cardiology- [place] [address] [place] [phone] Sridevi Sahu, WAREHOUSE TEAM MEMBER [address] [facility] [address] [place] [address] Palpitations (Primary Dx); Dizziness and Giddiness; Other and Unspecified Hyperlipidemia Social History Tobacco Use Types Packs/Day Years Used Date Smoking Tobacco: Never Assessed Comments Unknown Sex and Gender Information Value Date Recorded Sex Assigned at Not on file Legal Sex Female 6:34 AM RN HEMODIALYSIS CHARGE Gender Identity Not on file Sexual Orientation Not on file documented as of this encounter Plan of Treatment Not on file documented as of this encounter Visit Diagnoses Diagnosis Palpitations- Primary Dizziness and giddiness Other and unspecified hyperlipidemia documented in this encounter Care Teams Supervisor Telephone Information Relationship Specialty Start Date End Date Cecilia Ford MD PCP - General 08/07/03 documented as of this encounter
--- OUTSIDE RECORDS SUMMARY | 2025-10-10 16:15 | XMS_ITS | Encounter Summary ---
Author Organization [facility] Address [address] [place] [address] Care Team Providers Care Trademark Affixer Name Role Phone Cecilia Ford MD Primary Care Provid er Encounter Details Date Type Department Care Team (Late st Contact Info) Description 06/03/1999 Outpatient Historical [facility] OBGYN-[place] [address] [place] [address] Beryl Mehta MD [address] 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
--- OUTSIDE RECORDS SUMMARY | 2025-10-10 16:15 | XMS_ITS | Encounter Summary ---
Author Organization [facility] Address [address] [place] [address] Care Team Providers Care It Program Auditor Name Role Phone Cecilia Ford MD Primary Care Provid er Encounter Details Date Type Department Care Team (Latest Contact Info) Description 04/05/1998 Outpatient Historical [facility] INTERNAL MED EdinsonIsreal MD NO ADDRESS ON FILE Palpitations (Primary Dx); Anxiety state, unspecified; Myalgia and myositis, unspecified Social History Tobacco Use Types Packs/Day Years Used Date Smoking Tobacco: Never Assessed Comments Unknown Sex and Gender Information Value Date Recorded Sex Assigned at Not on file 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
--- OUTSIDE RECORDS SUMMARY | 2025-10-10 16:15 | XMS_ITS | Clinical Summary ---
Author Organization [facility] Address [address] [place] [address] Care Team Providers Care Sql Server Dba Developer Name Role Phone Cecilia Ford MD Primary Care Provid er Allergies Active Allergy Reactions Criticality Noted Date Comments Sulfa (Sulfonamide Antibiotics) Rash Low 05/22 Medications ALPRAZolam (XANAX) 0.25 mg Oral tablet Take 0.25 mg by mouth 4 times daily. Active imipramine HCl (TOFRANIL) 10 mg tabletIndications:De pression, major, recurrent, in partial remission Take 1 Tablet (10 mg) by mouth daily. 90 Tablet 3 6 Active imipramine HCl (TOFRANIL) 50 mg tabletIndications:Ot her insomnia Take 1 Tablet (50 mg) by mouth daily at bedtime. 90 Tablet 3 6 Active atorvastatin (LIPITOR) 10 mg tabletIndications:Ot her hyperlipidemia Take 1 Tablet (10 mg) by mouth Daily LATE. 90 Tablet 3 6 Active metoprolol succinate (TOPROL XL) 50 mg Extended Release 24 hour tabletIndications:PS VT (paroxysmal supraventricular tachycardia) Take 3 Tablets (150 mg) by mouth daily. 270 Tablet 3 1 Active Active Problems Problem Noted Date Diagnosed Date PVC's (premature ventricular contractions) 07/29 PSVT 12/19/2018 DM (diabetes mellitus), type 2 07/18/2017 Depression, major, recurrent, in partial remissi on 06/20/2016 Hyperlipidemia 06/09/2013 Anxiety state 06/09/2013 Resolved Problems Problem Noted Date Diagnosed Date Resolved Date Chest pain, exertional 07/29/202002/01 Pre-diabetes 06/20/2016 07/18/2017 Special screening for malign ant neoplasms, colon 07/21/2013 06/09/2014 Immunizations Immunization Administration Dates Next Due (ADACEL/BOOSTRIX)(10 YR UP) TDAP VACCINE, 0.5ML, IM 06/09/2014 (PNEUMOVAX 23)(50 YRS UP) PN EUMOCOCCAL POLYSACCHARIDE (PPV23) 0.5 ML, IM 08/08/2018 (PREVNAR 13)(6 WKS UP) PNEUM OCOCCAL CONJUGATE (PCV13) 0.5 ML, IM 07/31/2017 (SPIKEVAX) (12 YRS UP PRIMAR Y SERIES) COVID-19 VACCINE - MRNA-1273(PF) 100 MCG/0.5 ML IM SUSP 01/14/2021,12/17/2020 INFLUENZA VACCINE HIGH DOSE QUADRIVALENT 65 YR UP PF IM 08/03/2020 Influenza Seasonal Unspecified Formulation IM Influenza Vaccine High Dose 65+ Yrs IM 9,07/23/2018 Zoster Vaccine Live SQ 06/09/2013 Family History Medical History Relation Name Comments Heart Disease Father High Cholesterol Father Hypertension Father Colon Cancer Maternal Aunt 1 Colon Cancer Maternal Aunt 2 Colon Cancer Maternal Aunt 3 Colon Cancer Maternal Grandmother Colon Cancer Maternal Uncle Heart Disease Mother Relation Name Status Comments Brother Alive Father (Age 89) hypertensi on and heart disease Maternal Aunt 1 Maternal Aunt 2 Maternal Aunt 3 Maternal Grandmother Maternal Uncle Mother Alive Hypertension Sister 1 Alive Sister 2 Alive Social History Tobacco Use Types Packs/Day Years Used Date Smoking Tobacco: Never Smokeless Tobacco: Never Tobacco Cessation:Counseling Given: Yes Alcohol Use Standard Drinks/Week Comments No 0 (1 standard drink = 0.6 oz pur e alcohol) Comments No Sex and Gender Information Value Date Recorded Sex Assigned at Not on file Legal Sex Female 6:34 AM [employer] Gender Identity Not on file Sexual Orientation Not on file Occupation Industry Job Start Date Job End Date Not on file Not on file Not on file Not on file Last Filed Vital Signs Vital Sign Reading Time Taken Comments Blood Pressure 124/78 02/01/2021 11:08 AM CDT Pulse 80 02/01/2021 11:08 AM CDT Temperature 36.9 C (98.4 F) 02/01/2021 11:08 AM CDT Respiratory Rate 16 06/20/2016 11:09 AM CDT Oxygen Saturation 96% 02/01/2021 11:08 AM CDT Inhaled Oxygen Concentration - - Weight 92.5 kg (204 lb) 02/01/2021 11:08 AM CDT Height 165.1 cm (5' 5 ) 02/01/2021 11:08 AM CDT Body Mass Index 33.95 02/01/2021 11:08 AM CDT Plan of Treatment Health Maintenance Due Date Last Done Comments DIABETES ANNUAL FOOT EXAM 1970 FIT/ DNA Q 3 YEARS (AUTO ORDER) 1970 FIT/FOBT Q 1 YEAR (AUTO ORDER) 1970 FLEX SIG/CT COLONOGRAPHY Q 5 YEARS (AUTO ORDER) 1970 FIT-DNA Q 3 years 1997 FIT/FOBT Q 1 year 1997 Flex Sig/CT Colonography Q 5 years 1997 ZOSTER VACCINE (2 of 3) 08/04/2013 06/09/2013 BREAST CANCER SCREENING 12/15/2020 12/15/19 20, 11/05/2018, 11/05/2018, Additional history exists Traditional Medicare (ACO) A nnual Wellness Visit 08/04/2021 08/03/2020, 07/29/2019, 07/23/2018, Additional history exists DIABETES HBA1C Q 6 MONTHS 02/01/20222020, 02/01/2021, 03/02/2020, Additional history exists LDL CHOLESTEROL ANNUAL 02/01/2022 , 08/03/2020, 07/29/2019, Additional history exists DIABETES MICROALBUMIN ANNUAL SCREEN 08/03/2022 08/03/2021 COLORECTAL CANCER SCREENING (AUTO ORDER) 07/22/2023 07/22/2013, 07/21/2013 COLORECTAL SCREENING 07/22/2023 07/22/2013, 07/21/20 13 Colorectal Cancer Screening (AUTO ORDER) 07/22/2023 Colorectal Cancer Screening 07/22/2023 OSTEOPOROSIS SCREENING 08/26/2023 08/26/2018 DTAP/TDAP/TD VACCINES (2 - T d or Tdap) 06/09/2024 06/09/2014 INFLUENZA VACCINE (#1) 2025 , 07/29/2019, 07/23/2018, Additional history exists DIABETES ANNUAL RETINAL EXAM 05/23/202511/2023, 07/12/2023, 06/14/2023, Additional history exists COVID-19 Vaccine (3 - 2024-2 6 season) 2025 01/14/2021, 12/17/2020 RSV VACCINE (60+ or ) (1 - 1-dose 75+ series) 2027 PNEUMOCOCCAL VACCINE 50+ YEARS Completed 08/08/2018 , 07/31/2017 Procedures Procedure Name Priority Date/Time Associated Diagnosis Comments MICROALBUMIN/CREATI NINE RATIO, RANDOM UR Routine 08/03/2021 11:29 AM CDT Type 2 diabetes mellitus with hyperlipidemia (CMS/HCC) HEMOGLOBIN A1C Routine 08/03/2021 11:16 AM CDT Type 2 diabetes mellitus with hyperlipidemia (CMS/HCC) LIPID PANEL Routine 02/01/2021 10:58 AM CDT Mixed hyperlipidemia MAMMO SCREEN BILAT W OR WO CAD Routine 11/05/2018 ENDOSCOPY, COLON, SCREENING Routine 07/22/2013 1:07 PM CDT Screen for colon cancer from Last 3 Months or Most Recently Relevant to Health Maintenance Results * MICROALBUMIN/CREATININE RATIO, RANDOM UR (08/03/2021 11:29 AM CDT) Creatinine, Urine 110 20 - 275 mg/dL [facility] [place] MICROALBUMIN, URINE 0.6 See Note: mg/dL [facility] [place] Comment: Reference Range: Reference Range Not established MICROALBUMIN/CREAT RATIO, UR 5 <30 mcg/mg creat [facility] [place] Comment: The ADA defines abnormalities in albumin excretion as follows: Albuminuria Category Result (mcg/mg creatinine) Normal to Mildly increased <30 Moderately increased 30-299 Severely increased > OR = 300 The ADA recommends that at least two of three specimens collected within a 3-6 month period be abnormal before considering a patient to be within a diagnostic category. Test Performed at: [facility] [id number] [place] [address] Alexy Brennan D.O., MPH Urine URINE SPECIMEN OBTAINED BY CLEAN CATCH PROCEDURE / Unknown 08/03/2021 11:29 AM CDT 08/03/2021 11:29 AM CDT Cecilia Ford MD URINE ORDERABLES Fin al Result Performing Organization Address [facility]/ZIP Co de Phone Number [facility] [place] [address] [place] [address] * (ABNORMAL) HEMOGLOBIN A1C (08/03/2021 11:16 AM CDT) HEMOGLOBIN A1C 6.0(H) <5.7 % of total Hgb [facility] [place] Comment: For someone without known diabetes, a hemoglobin A1c value between 5.7% and 6.4% is consistent with prediabetes and should be confirmed with a follow-up test. For someone with known diabetes, a value <7% indicates that their diabetes is well controlled. A1c targets should be individualized based on duration of diabetes, age, comorbid conditions, and other considerations. This assay result is consistent with an increased risk of diabetes. Currently, no consensus exists regarding use of hemoglobin A1c for diagnosis of diabetes for children. FASTING:YES FASTING: YES Test Performed at: [facility] [address] [facility] [place] [address] Alexy Brennan D.O., MPH Blood 08/03/2021 11:1 6 AM CDT 08/03/2021 11:18 AM CDT Cecilia Ford MD CHEMISTRY ORDERABLES Final Result Performing Organization Address [facility]/ZIP Co de Phone Number [facility] [place] [address] * LIPID PANEL (02/01/2021 10:58 AM CDT) CHOLESTEROL 170 <200 mg/dL 02/01/2021 11:54 AM CDT [facility] TRIGLYCERIDE 104 <150 mg/dL 02/01/2021 11:54 AM CDT [facility] HDL 53 40 - 59 mg/dL 02/01/2021 11:54 AM T [facility] LDL CALCULATED 96 <100 mg/dL 02/01/2021 11:54 AM T [facility] NON-HDL CHOLESTEROL 117 <130 mg/dL 02/01/2021 11:54 AM T [facility] Blood Venipuncture / Unknown 02/01/2021 10:58 AM CDT 02/01/2021 10:58 AM CDT Narrative [facility] - 02/01/2021 11:54 AM CDT TOTAL CHOLESTEROL mg/dL Desirable <200 Borderline high 200-239 High >=240 TRIGLYCERIDES mg/dL Normal <150 Borderline high 150-199 High 200-499 Very high >=500 HDL CHOLESTEROL mg/dL Low <40 Normal 40-59 Desirable >=60 NON HDL CHOLESTEROL mg/dL Optimal <130 Near Optimal 130-159 Borderline High 160-189 Very High >=190 CALCULATED LDL mg/dL LDL <70, OPTIMAL if have Atherosclerotic cardiovascular disease (ASCVD) or intermediate or higher (>7.5%) 10 year risk of ASCVD including most adults with diabetes. LDL <100, Optimal in adult patients with low (<7.5%) 10 year ASCVD risk LDL 100-160, Suboptimal LDL >160, High LDL >190, Very high ATPIII Guidelines Reference Ranges for Lipid Panels (NCEP/AMA) . us Cecilia Ford MD CHEMISTRY ORDERABLES Final Result [facility] CLIA# [id number] [address] [place] [address] * MAMMO SCREEN BILAT W OR WO CAD (11/05/2018) Anatomical Region Laterality Modality Breast Bilateral Mammography us Abstract Spg Provider MAMMO ORDERABLES Final Res ult * ENDOSCOPY, COLON, SCREENING (07/22/2013 1:07 PM CDT) Narrative Transcriptions Zachariah Maher MD - 07/22/2013 9:24 AM CDT [place], [place] Patient: UNIQUE GOODMAN CSN: [id number] : 1950 Provider: Zachariah Maher MD ENDOSCOPY PROCEDURE REPORT DATE: 07/21/2013 PROCEDURE: Colonoscopy to cecum. INDICATIONS: A 63-year-old woman referred for routine colorectal cancerscreening. ENDOSCOPIST: Zachariah Maher M.D. NURSES: Cinthia Coon R.N. and Vero Costa R.N. ENDOSCOPE: Tern [id number] video colonoscope. MEDICATIONS: Versed 6 mg IV in increments and fentanyl 150 mcg IV. MONITORING: Blood pressure, oxygen saturation, and cardiac monitoring.The patient was on 2 L of oxygen per nasal cannula. DESCRIPTION OF PROCEDURE: Digital rectal examination was unrevealing.The colonoscope was advanced to the cecum without difficulty. Location ofthe cecum was verified by identifying the base of the cecum and theileocecal valve. Circumferential inspection of the colonic mucosalsurface was performed on slow withdrawal of the instrument. The bowelprep was good. The mucosal and vascular pattern appeared normal throughthe length of the colon. There were no polyps, mass lesions, diverticula,or angiodysplasias. There were no inflammatory changes or stenosis. Aretroflexed view of the rectum was unremarkable. The procedure was well tolerated. There were no complications.Endoscopic photos were obtained. IMPRESSION: Unremarkable colonoscopy exam. Zachariah Maher MD MMODL D: [id number] V: [id number] cc: Rosa Rushing MD Cecilia Ford MD GI PROCEDURE ORDERAB LES Final Result from Last 3 Months or Most Recently Relevant to Health Maintenance Insurance [place] [id number] MEDICARE PART A AND B Advance Directives For more information, please contact: [phone] * Full Code (Latest Code Status on File) Date Activated Date Inactivated Comments 07/21/2013 1:54 PM 07/21/2013 4:32 PM * Full Code Date Activated Date Inactivated Comments 07/21/2013 1:04 PM 07/21/2013 1:54 PM Care Teams [employer] Server Dba Developer Relationship Specialty Start Date End Date Cecilia Ford MD PCP - General 08/07/03
--- OUTSIDE RECORDS SUMMARY | 2025-10-10 16:15 | XMS_ITS | Clinical Summary ---
Author Organization [facility] Address [address] [place] [address] Care Team Providers Care Interior Decorator Name Role Phone Cecilia Ford MD Primary Care Provid er Allergies Active Allergy Reactions Criticality Noted Date Comments Sulfa (Sulfonamide Antibiotics) Rash Low 05/22 Medications atorvastatin (LIPITOR) 10 mg tablet Take 1 Tablet by mouth daily. 3 Active ALPRAZolam (XANAX) 0.25 mg disintegrating tablet four times daily, as needed 3 Active imipramine HCl (TOFRANIL) 25 mg tablet Take 2 tablets twice a day by oral route for 90 days. 3 Active imipramine HCl (TOFRANIL) 10 mg tablet Take 60 mg by mouth daily at bedtime. Takes with 50 mg for 60 mg total Active metoprolol succinate (TOPROL XL) 50 mg Extended Release 24 hour tabletIndications:S upraventricular tachycardia take three tablets by mouth daily 270 Tablet 3 4 Active MAGNESIUM CITRATE ORAL Take by mouth 1 time daily as needed. Active Active Problems Problem Noted Date Diagnosed Date PVC's (premature ventricular contractions) 07/29 PSVT 12/19/2018 DM (diabetes mellitus), type 2 07/18/2017 Depression, major, recurrent, in partial remissi on 06/20/2016 Anxiety state 06/09/2013 Hyperlipidemia 06/09/2013 Resolved Problems Problem Noted Date Diagnosed Date Resolved Date Chest pain, exertional 07/29/202002/01 Pre-diabetes 06/20/2016 07/18/2017 Special screening for malign ant neoplasms, colon 07/21/2013 06/09/2014 Encounters Date Type Department Care Team Description 09/08/2025 External Device Data STL ABSTRACTION Provider, Abstract from Last 3 Months Immunizations Immunization Administration Dates Next Due (ADACEL/BOOSTRIX)(10 YR UP) TDAP VACCINE, 0.5ML, IM 06/09/2014 (PNEUMOVAX 23)(50 YRS UP) PN EUMOCOCCAL POLYSACCHARIDE (PPV23) 0.5 ML, IM 08/08/2018 (PREVNAR 13)(6 WKS UP) PNEUM OCOCCAL CONJUGATE (PCV13) 0.5 ML, IM 07/31/2017 (SHINGRIX)(50 YRS UP) ZOSTER VACCINE RECOMBINANT, 0.5 ML, IM 06/16/2022,03/29/2022 (SPIKEVAX) (12 YRS UP PRIMAR Y SERIES) COVID-19 VACCINE - MRNA-1273(PF) 100 MCG/0.5 ML IM SUSP 01/14/2021,12/17/2020 INFLUENZA VACCINE HIGH DOSE QUADRIVALENT 65 YR UP PF IM 08/01/2022,08/03/2021,08/03/2020 Influenza Seasonal Unspecifi ed Formulation IM 08/22/2024,08/22/2023,08/22/2006 Influenza Vaccine High Dose 65+ Yrs IM [...] Never Smokeless Tobacco: Never Tobacco Cessation:Counseling Given: Not Answered Alcohol Use Standard Drinks/Week Comments No 0 (1 standard drink = 0.6 oz pur e alcohol) Financial Resource Strain Answer Date R ecorded How hard is it for you to pa y for the very basics like food, housing, medical care, and heating? Not hard at all 01/04/2023 Food Insecurity Answer Date Recorded In the past 12 months, have you worried that your food would run out before you had money to buy more? Never true 01/04/2023 In the past 12 months, did y ou run out of food and didn't have money to buy more? Never true 01/04/2023 Transportation Needs Answer Date Record ed In the past 12 months, has l ack of transportation kept you from medical appointments or from getting medications? No 01/04/2023 Lack of Transportation (Non-Medical) Not on file 01/04/2023 Feeling Safe Answer Date Recorded Are you in a relationship wi th someone who hurts you emotionally and/or physically? No 06/11/2024 Comments No Sex and Gender Information Value Date Recorded Sex Assigned at Not on file Legal Sex Female 2:33 AM PROP SAWYER Gender Identity Not on file Sexual Orientation Not on file Last Filed Vital Signs Vital Sign Reading Time Taken Comments Blood Pressure 114/80 02/02/2025 10:31 AM CDT Pulse 68 02/02/2025 10:31 AM CDT Temperature 37.2 C (98.9 F) 08/22/2023 4:39 PM CDT Respiratory Rate 18 06/11/2024 9:18 AM CDT Oxygen Saturation 97% 01/15/2025 10: 28 AM CDT Inhaled Oxygen Concentration - - Weight 93.4 kg (205 lb 12.8 oz) 025 10:31 AM CDT Height 165.1 cm (5' 5 ) 02/02/2025 10:3 1 AM CDT Body Mass Index 34.25 02/02/2025 10:31 AM CDT Plan of Treatment Upcoming Encounters Date Type Department Care Team (Late st Contact Info) Description 01/18/2026 10:40 AM CDT Office Visit [facility] [address] [place] [address] Cecilia Ford, MD [address] [place] [address] 02/03/2026 1:20 PM CDT Office Visit [facility] [address] [place] [address] Mira Grijalva, VIANCA [address] [place] [address] Health Maintenance Due Date Last Done Comments DIABETES ANNUAL FOOT EXAM 1970 FIT-DNA Q 3 years 1997 FIT/FOBT Q 1 year 1997 Flex Sig/CT Colonography Q 5 years 1997 OSTEOPOROSIS SCREENING 08/26/2023 08/26/2018 DTAP/TDAP/TD VACCINES (2 - T d or Tdap) 06/09/2024 06/09/2014 DIABETES MICROALBUMIN ANNUAL SCREEN 01/14/2025 01/15/2024, 08/03/2021 INFLUENZA VACCINE (#1) 2025 , 09/03/2023, 08/22/2023, Additional history exists DIABETES ANNUAL RETINAL EXAM 05/23/202511/2023, 05/23/2024, 05/23/2024, Additional history exists COVID-19 Vaccine (3 - 2024-2 6 season) 2025 01/14/2021, 12/17/2020 DIABETES HBA1C Q 6 MONTHS 09/29/20252024, 01/15/2025, 09/17/2024, Additional history exists LDL CHOLESTEROL ANNUAL 01/15/2026 , 01/15/2024, 01/04/2023, Additional history exists Traditional Medicare (ACO) A nnual Wellness Visit 01/16/2026 01/15/2025, 01/15/2024, 01/04/2023, Additional history exists DIABETES: A1C (Auto Order) 03/30/202603/30, 01/15/2025, 09/17/2024, Additional history exists BREAST CANCER SCREENING 04/07/2026 04/07/20 25, 04/07/2025, 03/20/2023, Additional history exists RSV VACCINE (60+ or ) (1 - 1-dose 75+ series) 2027 COLORECTAL SCREENING 06/11/2031 06/11/2024, 06/11/2024, 07/22/2013, Additional history exists Colorectal Cancer Screening 06/11/2031 PNEUMOCOCCAL VACCINE 50+ YEARS Completed 08/08/2018 , 07/31/2017 ZOSTER VACCINE Completed 06/16/2022, 06/0 05/2022, 06/09/2013 Medical Devices Implanted Type Area Utility Maintenance Worker Device Identifier Shelf Expiration Date Model / Serial / Lot Lens Iol Ct Yvonne 602.Us +18.0d [employer] [place] [id number] - [id number] Implanted:Qty: 1 on 08/22/2023 by Guru Cota MD at [facility] Right: Eye CLAY DNP [employer] [facility] 07/21/2026 [id number] / [id number] / Procedures Procedure Name Priority Date/Time Associated Diagnosis Comments LIPID PANEL Routine 01/15/2025 9:56 AM CDT Type 2 diabetes mellitus with hyperlipidemia (CMS/HCC) HEMOGLOBIN A1C Routine 01/15/2025 9:56 AM CDT Type 2 diabetes mellitus with hyperlipidemia (CMS/HCC) COLONOSCOPY REPORT 06/11/2024 9: 00 AM CDT MICROALBUMIN/CREATI NINE RATIO, RANDOM UR Routine 01/15/2024 10:39 AM CDT MAMMO 3D WOODY SCREEN BILAT W OR WO CAD 02/23/2021 11:01 AM CDT from Last 3 Months or Most Recently Relevant to Health Maintenance Results * (ABNORMAL) HEMOGLOBIN A1C (01/15/2025 9:56 AM CDT) HEMOGLOBIN A1C 6.2(H) <5.7 % of total Hgb [facility] Comment: For someone without known diabetes, a [...] A1c for diagnosis of diabetes for children. ESTIMATED AVERAGE GLUCOSE (MG/DL) 131 mg/dL [facility] ESTIMATED AVERAGE GLUCOSE (MMOL/L) 7.3 mmol/L [facility] Comment: FASTING:YES FASTING: YES Test Performed at: [facility] [id number] [place] [address] Isrrael Jones MD Blood 01/15/2025 9:56 AM CDT 01/15/2025 9:56 AM CDT Cecilia Ford MD CHEMISTRY ORDERABLES Final Result [facility] [phone] [facility] [address] [place] [address] * LIPID PANEL (01/15/2025 9:56 AM CDT) CHOLESTEROL 176 <200 mg/dL [facility] HDL 55 > OR = 50 mg/dL [facility] TRIGLYCERIDE 129 <150 mg/dL [facility] LDL CALCULATED 98 mg/dL (calc) [facility] Comment: Reference range: <100 Desirable range <100 mg/dL for primary prevention; <70 mg/dL for patients with CHD or diabetic patients with > or = 2 CHD risk factors. LDL-C is now calculated using the Alex calculation, which is a validated novel method providing better accuracy than the Friedewald equation in the estimation of LDL-C. Serjio NUNEZ et al. BENJAMIN. 2013;310(19): 9318-3774 (http://education.Collarity.AudioEye/faq/HTL369) CHOL/HDL RATIO 3.2 <5.0 (calc) [facility] RR NON-HDL CHOLESTEROL 121 <130 mg/dL (calc) [facility] Comment: For patients with diabetes plus 1 major ASCVD risk factor, treating to a non-HDL-C goal of <100 mg/dL (LDL-C of <70 mg/dL) is considered a therapeutic option. Test Performed at: [facility] RR [address] [place] [address] Roque Aggarwal Blood 01/15/2025 9:56 AM CDT 01/15/2025 9:56 AM CDT us Cecilia Ford MD CHEMISTRY ORDERABLES Final Result [facility] [phone] [facility] [address] [place] [address] * COLONOSCOPY REPORT (06/11/2024 9:00 AM CDT) Narrative Procedure Note Zachariah Maher MD - 06/11/2024 9:00 AM CDT [facility] GI Patient Name: Unique Goodman Procedure Date: 06/11/2024 Date of : 1950 Admit Type: Outpatient Age: 73 Attending MD: Zachariah Maher , , Procedure: Colonoscopy Indications: Screening for colorectal malignant neoplasm (last colonoscopy was 10 years ago) Providers: Zachariah Maher Referring MD: Zachariah Maher Requesting Provider: Cecilia Ford Medicines: Monitored Anesthesia Care Complications: No immediate complications. Procedure: Pre-Anesthesia Assessment: - The risks and benefits of the procedure and the sedation options and risks were discussed with the patient. All questions were answered and informed consent was obtained. - ASA Grade Assessment: II - A patient with mild systemic disease. After I obtained informed consent, the scope was passed under direct vision. Throughout the procedure, the patient's blood pressure, pulse, and oxygen saturations were monitored continuously. The Colonoscope was introduced through the anus and advanced to the cecum, identified by appendiceal orifice and ileocecal valve. The colonoscopy was performed without difficulty. The patient tolerated the procedure well. The quality of the bowel preparation was adequate. Estimated Blood Loss: Estimated blood loss was minimal. Findings: The perianal and digital rectal examinations were normal. A 4 mm polyp was found in the cecum. The polyp was sessile. The polyp was removed with a cold snare. Resection and retrieval were complete. The exam was otherwise without abnormality on direct and retroflexion views. Impression: - One 4 mm polyp in the cecum, removed with a cold snare. Resected and retrieved. - The examination was otherwise normal on direct and retroflexion views. Recommendation: - Await pathology results. Zachariah Maher, 06/11/2024 8:59:47 AM Number of Addenda: 0 Note Initiated On: 06/11/2024 8:36 AM Scope Withdrawal Time 0 hours 5 minutes 56 seconds Scope In: 8:44:15 AM Scope Out: 8:55:59 AM [address] [place], [place] Zachariah Maher MD GI PROCEDURE ORDERABLES Final Result * MICROALBUMIN/CREATININE RATIO, RANDOM UR (01/15/2024 10:39 AM CDT) Creatinine, Urine 97 20 - 275 mg/dL [facility] MICROALBUMIN, URINE 0.6 See Note: mg/dL [facility] Comment: Reference Range: Reference Range Not established MICROALBUMIN/CREAT RATIO, UR 6 <30 mg/g creat [facility] Comment: The ADA defines abnormalities in albumin excretion as follows: Albuminuria Category Result (mg/g creatinine) Normal to Mildly increased <30 Moderately increased 30-299 Severely increased > OR = 300 The ADA recommends that at least two of three specimens collected within a 3-6 month period be abnormal before considering a patient to be within a diagnostic category. FASTING:YES FASTING: YES Test Performed at: [facility] [id number] [place] [address] Isrrael Jones MD 01/15/2024 10:3 9 AM CDT 01/15/2024 10:40 AM CDT Cecilia Ford MD URINE ORDERABLES Fin al Result Performing Organization Address City/State/[facility] [place] Phone Number [facility] [phone] [facility] [address] [place] [address] * MAMMO SCRN BILAT 3D WOODY W OR WO CAD (02/23/2021 11:01 AM CDT) Anatomical Region Laterality Modality Breast Bilateral Mammography Cecilia Ford MD MAMMO ORDERABLES Fin al Result from Last 3 Months or Most Recently Relevant to Health Maintenance Insurance [employer] [place] [employer] [place]IC[place] PART A [place] B Advance Directives For more information, please contact: [phone] * Full Code (Latest Code Status on File) Date Activated Date Inactivated Comments 06/11/2024 7:50 AM 06/11/2024 11:58 AM * Full Code Date Activated Date Inactivated Comments 08/22/2023 12:49 PM 08/22/2023 7:12 PM Care Teams Interior Decorator Relationship Specialty Start Date End Date Cecilia Ford MD PCP - General 08/07/03
--- OUTSIDE RECORDS SUMMARY | 2025-10-10 16:15 | XMS_ITS | Encounter Summary ---
Author Organization [facility] Address [address] [place] [address] Care Team Providers Care Conduit Bender Name Role Phone Cecilia Ford MD Primary Care Provid er Encounter Details Date Type Department Care Team (Latest Contact Info) Description 06/14/1999 Outpatient Historical [facility] EdinsonIsreal MD NO ADDRESS ON FILE Other chest pain (Primary Dx) Social History Tobacco Use Types Packs/Day Years Used Date Smoking Tobacco: Never Assessed Comments Unknown Sex and Gender Information Value Date Recorded Sex Assigned at Not on file Legal Sex Female 6:34 AM TOUCH UP CARVER Gender Identity Not on file Sexual Orientation Not on file documented as of this encounter Plan of Treatment Not on file documented as of this encounter Visit Diagnoses Diagnosis Other chest pain- Primary documented in this encounter Care Teams Conduit Bender Relationship Specialty Start Date End Date Cecilia Ford MD PCP - General 08/07/03 documented as of this encounter
--- OUTSIDE RECORDS SUMMARY | 2025-10-10 16:15 | XMS_ITS | Encounter Summary ---
Author Organization [facility] Address [address] [place] [address] Care Team Providers Care Harbor Engineer Name Role Phone Cecilia Ford MD Primary Care Provid er Encounter Details Date Type Department Care Team (Latest Contact Info) Description 05/19/1998 Outpatient Historical [facility] Mohinder Villatoro MD [address] [place] [address] Gynecologic examination (Primary Dx); Symptomatic menopausal or female climacteric states Social History Tobacco Use Types Packs/Day Years Used Date Smoking Tobacco: Never Assessed Comments Unknown Sex and Gender Information Value Date Recorded Sex Assigned at Not on file Legal Sex Female 6:34 AM DRAPERY ROD ASSEMBLER Gender Identity Not on file Sexual Orientation Not on file documented as of this encounter Plan of Treatment Not on file documented as of this encounter Visit Diagnoses Diagnosis Gynecologic examination- Primary Gynecological examination Symptomatic menopausal or female climacteric states documented in this encounter Care Teams Harbor Engineer Relationship Specialty Start Date End Date Cecilia Ford MD PCP - General 08/07/03 documented as of this encounter
--- OUTSIDE RECORDS SUMMARY | 2025-10-10 16:15 | XMS_ITS | Encounter Summary ---
Author Organization [facility] Address [address] [place] [address] Care Team Providers Care Naval Aircrewman Mechanical Name Role Phone Cecilia Ford MD Primary Care Provid er Encounter Details Date Type Department Care Team (Late st Contact Info) Description 06/03/[address] [facility] Rey Henry [address] [place] [address] Unique Leon MD NO ADDRESS ON FILE Family history of malignant neoplasm of breast (Primary Dx) Social History Tobacco Use Types Packs/Day Years Used Date Smoking Tobacco: Never Assessed Comments Unknown Sex and Gender Information Value Date Recorded Sex Assigned at Not on file Legal Sex Female 6:34 AM FISH HATCHERY SUPERVISOR Gender Identity Not on file Sexual Orientation Not on file documented as of this encounter Plan of Treatment Not on file documented as of this encounter Visit Diagnoses Diagnosis Family history of malignant neoplasm of breast- Primary documented in this encounter Care Teams Naval Aircrewman Mechanical Relationship Specialty Start Date End Date Cecilia Fodr MD PCP - General 08/07/03 documented as of this encounter
--- OUTSIDE RECORDS SUMMARY | 2025-10-10 16:15 | XMS_ITS | Encounter Summary ---
Author Organization [facility] Address [address] [place] [address] Care Team Providers Care Manager Rail Name Role Phone Cecilia Ford MD Primary Care Provid er Encounter Details Date Type Department Care Team (Latest Contact Info) Description 05/19/1998 Outpatient Historical [facility] [address] [facility] [facility] [address] [place] [address] Wilian Babb MD NO ADDRESS ON FILE Family history of malignant neoplasm of breast (Primary Dx) Social History Tobacco Use Types Packs/Day Years Used Date Smoking Tobacco: Never Assessed Comments Unknown Sex and Gender Information Value Date Recorded Sex Assigned at Not on file Legal Sex Female 6:34 AM ELECTROMECHANICAL TECHNICIAN Gender Identity Not on file Sexual Orientation Not on file documented as of this encounter Plan of Treatment Not on file documented as of this encounter Visit Diagnoses Diagnosis Family history of malignant neoplasm of breast- Primary documented in this encounter Care Teams Manager Rail Relationship Specialty Start Date End Date Cecilia Ford MD PCP - General 08/07/03 documented as of this encounter
--- OUTSIDE RECORDS SUMMARY | 2025-10-10 16:15 | XMS_ITS | Encounter Summary ---
Author Organization [facility] Address [address] [place] [address] Care Team Providers Care Rolls Baker Name Role Phone Cecilia Ford MD Primary Care Provid er Encounter Details Date Type Department Care Team (Latest Contact Info) Description 04/13/2000 Outpatient Historical [facility] INTER[facility] MED Isreal Neves MD NO ADDRESS ON FILE Encounter for long-term (current) use of other medications (Primary Dx); Other and unspecified hyperlipidemia Social History Tobacco Use Types Packs/Day Years Used Date Smoking Tobacco: Never Assessed Comments Unknown Sex and Gender Information Value Date Recorded Sex Assigned at Not on file Legal Sex Female 6:34 AM SPECIAL EVENTS ASSISTANT Gender Identity Not on file Sexual Orientation Not on file documented as of this encounter Plan of Treatment Not on file documented as of this encounter Visit Diagnoses Diagnosis Encounter for long-term (current) use of other medications- Primary Other and unspecified hyperlipidemia documented in this encounter Care Teams Rolls Baker Relationship Specialty Start Date End Date Cecilia Ford MD PCP - General 08/07/03 documented as of this encounter
--- OUTSIDE RECORDS SUMMARY | 2025-10-10 16:15 | XMS_ITS | Encounter Summary ---
Author Organization [facility] Address [address] [place] [address] Care Team Providers Care Refrigeration Repair Supervisor Name Role Phone Cecilia Ford MD Primary Care Provid er Encounter Details Date Type Department Care Team (Latest Contact Info) Description 05/23/2000 Outpatient Historical [facility] Internal Medicine- [address] [place] [address] Isreal Neves MD NO ADDRESS ON FILE Pure hypercholesterolem (Primary Dx); Encounter for long-term (current) use of other medications Social History Tobacco Use Types Packs/Day Years Used Date Smoking Tobacco: Never Assessed Comments Unknown Sex and Gender Information Value Date Recorded Sex Assigned at Not on file Legal Sex Female 6:34 AM BRANCH BANKER Gender Identity Not on file Sexual Orientation Not on file documented as of this encounter Plan of Treatment Not on file documented as of this encounter Visit Diagnoses Diagnosis Pure hypercholesterolem- Primary Pure hypercholesterolemia Encounter for long-term (current) use of other medications documented in this encounter Care Teams Refrigeration Repair Supervisor Relationship Specialty Start Date End Date Cecilia Ford MD PCP - General 08/07/03 documented as of this encounter
--- OUTSIDE RECORDS SUMMARY | 2025-10-10 16:16 | XMS_ITS | Encounter Summary ---
Author Organization [facility] Address [address] [place] [address] Care Team Providers Care Switchboard Troubleshooter Name Role Phone Cecilia Ford MD Primary Care Provid er Encounter Details Date Type Department Care Team (Latest Contact Info) Description 03/02/2000 Outpatient Historical [facility] INTER[facility] MED Isreal Neves MD NO ADDRESS ON FILE Pure hypercholesterolem (Primary Dx); Encounter for long-term (current) use of other medications Social History Tobacco Use Types Packs/Day Years Used Date Smoking Tobacco: Never Assessed Comments Unknown Sex and Gender Information Value Date Recorded Sex Assigned at Not on file Legal Sex Female 6:34 AM HEAD PACKAGER Gender Identity Not on file Sexual Orientation Not on file documented as of this encounter Plan of Treatment Not on file documented as of this encounter Visit Diagnoses Diagnosis Pure hypercholesterolem- Primary Pure hypercholesterolemia Encounter for long-term (current) use of other medications documented in this encounter Care Teams Switchboard Troubleshooter Relationship Specialty Start Date End Date Cecilia Ford MD PCP - General 08/07/03 documented as of this encounter
--- OUTSIDE RECORDS SUMMARY | 2025-10-10 16:16 | XMS_ITS | Encounter Summary ---
Author Organization [facility] Address [address] [place] [address] Care Team Providers Care Mineral Industry Teacher Name Role Phone Cecilia Ford MD Primary Care Provid er Encounter Details Date Type Department Care Team (Latest Contact Info) Description 08/28/2005 Outpatient Historical [facility] Int [facility] [address] [place] [address] Sunny Harmon MD [address] [place] [address] PRECORDIAL PAIN (Primary Dx) Social History Tobacco Use Types Packs/Day Years Used Date Smoking Tobacco: Never Assessed Comments Unknown Sex and Gender Information Value Date Recorded Sex Assigned at Not on file Legal Sex Female 6:34 AM FOREST PATROLMAN Gender Identity Not on file Sexual Orientation Not on file documented as of this encounter Plan of Treatment Not on file documented as of this encounter Visit Diagnoses Diagnosis Precordial pain- Primary documented in this encounter Care Teams Mineral Industry Teacher Relationship Specialty Start Date End Date Cecilia Ford MD PCP - General 08/07/03 documented as of this encounter
--- OUTSIDE RECORDS SUMMARY | 2025-10-10 16:16 | XMS_ITS | Encounter Summary ---
Author Organization [facility] Address [address] [place] [address] Care Team Providers Care Senior Net Software Developer Name Role Phone Cecilia Ford MD Primary Care Provid er Encounter Details Date Type Department Care Team (Latest Contact Info) Description 11/22/1999 Outpatient Historical [facility] Zachariah Maher MD [address] [facility] [address] [place] [address] Esophageal reflux (Primary Dx) Social History Tobacco Use Types Packs/Day Years Used Date Smoking Tobacco: Never Assessed Comments Unknown Sex and Gender Information Value Date Recorded Sex Assigned at Not on file Legal Sex Female 6:34 AM DECONTAMINATOR Gender Identity Not on file Sexual Orientation Not on file documented as of this encounter Plan of Treatment Not on file documented as of this encounter Visit Diagnoses Diagnosis Esophageal reflux- Primary documented in this encounter Care Teams Senior Net Software Developer Relationship Specialty Start Date End Date Cecilia Ford MD PCP - General 08/07/03 documented as of this encounter
--- OUTSIDE RECORDS SUMMARY | 2025-10-10 16:16 | XMS_ITS | Encounter Summary ---
Author Organization [facility] Address [address] [place] [address] Care Team Providers Care Technical Support 1 Software Engineer Name Role Phone Cecilia Ford MD Primary Care Provid er Encounter Details Date Type Department Care Team (Latest Contact Info) Description 08/21/2005 Outpatient Historical [facility] Internal Medicine- [place] [address] [place] [address] Cecilia Ford MD [address] [place] [address] CHEST PAIN NOS (Primary Dx); HYPERLIPIDEMIA NEC/NOS Social History Tobacco Use Types Packs/Day Years Used Date Smoking Tobacco: Never Assessed Comments Unknown Sex and Gender Information Value Date Recorded Sex Assigned at Not on file Legal Sex Female 6:34 AM LINING SEWER Gender Identity Not on file Sexual Orientation Not on file documented as of this encounter Plan of Treatment Not on file documented as of this encounter Visit Diagnoses Diagnosis Chest pain, unspecified- Primary Other and unspecified hyperlipidemia documented in this encounter Care Teams Technical Support 1 Software Engineer Relationship Specialty Start Date End Date Cecilia Ford MD PCP - General 08/07/03 documented as of this encounter
--- OUTSIDE RECORDS SUMMARY | 2025-10-10 16:16 | XMS_ITS | Encounter Summary ---
Author Organization [facility] Address [address] [place] [address] Care Team Providers Care Bottom Finisher Name Role Phone Cecilia Ford MD Primary Care Provid er Encounter Details Date Type Department Care Team (Latest Contact Info) Description 05/31/2001 Outpatient Historical [facility] [place] MANAGER FLOAT [address] [place] [address] Gideon Narayan MD NO ADDRESS ON FILE Dyspareunia (Primary Dx); Unspecified symptom associated with female genital organs; Postmenopausal bleeding Social History Tobacco Use Types Packs/Day Years Used Date Smoking Tobacco: Never Assessed Comments Unknown Sex and Gender Information Value Date Recorded Sex Assigned at Not on file Legal Sex Female 6:34 AM ALLERGY PHYSICIAN Gender Identity Not on file Sexual Orientation Not on file documented as of this encounter Plan of Treatment Not on file documented as of this encounter Visit Diagnoses Diagnosis Dyspareunia- Primary Unspecified symptom associated with female genital organs Postmenopausal bleeding documented in this encounter Care Teams Bottom Finisher Relationship Specialty Start Date End Date Cecilia Ford MD PCP - General 08/07/03 documented as of this encounter
--- OUTSIDE RECORDS SUMMARY | 2025-10-10 16:16 | XMS_ITS | Encounter Summary ---
Author Organization [facility] Address [address] [place] [address] Care Team Providers Care Fish Farm Laborer Name Role Phone Cecilia Ford MD Primary Care Provid er Encounter Details Date Type Department Care Team (Latest Contact Info) Description 08/07/2003 Outpatient [facility] Breast [facility] [address] [place] [address] Gideon Narayan MD NO ADDRESS ON FILE SCREENING MAMM-MAILG NEOPL-OTHER (Primary Dx) Social History Tobacco Use Types Packs/Day Years Used Date Smoking Tobacco: Never Assessed Comments Unknown Sex and Gender Information Value Date Recorded Sex Assigned at Not on file Legal Sex Female 6:34 AM EYE TECHNICIAN Gender Identity Not on file Sexual Orientation Not on file documented as of this encounter Plan of Treatment Not on file documented as of this encounter Visit Diagnoses Diagnosis Other screening mammogram- Primary documented in this encounter Care Teams Fish Farm Laborer Relationship Specialty Start Date End Date Cecilia Ford MD PCP - General 08/07/03 documented as of this encounter
--- OUTSIDE RECORDS SUMMARY | 2025-10-10 16:16 | XMS_ITS | Encounter Summary ---
Author Organization [facility] Address [address] [place] [address] Care Team Providers Care Cone Machine Feeder Name Role Phone Cecilia Ford MD Primary Care Provid er Encounter Details Date Type Department Care Team (Latest Contact Info) Description 04/29/2002 Outpatient Historical [facility] REPAIRER HANDTOOLS [address] [place] [phone] Gideon Narayan MD NO ADDRESS ON FILE UTERINE LEIOMYOMA NOS (Primary Dx); FEMALE GENITAL SYMPTOMS NOS Social History Tobacco Use Types Packs/Day Years Used Date Smoking Tobacco: Never Assessed Comments Unknown Sex and Gender Information Value Date Recorded Sex Assigned at Not on file Legal Sex Female 6:34 AM PUMP ROOM OPERATOR Gender Identity Not on file Sexual Orientation Not on file documented as of this encounter Plan of Treatment Not on file documented as of this encounter Visit Diagnoses Diagnosis Leiomyoma of uterus, unspecified- Primary Unspecified symptom associated with female genital organs documented in this encounter Care Teams Cone Machine Feeder Relationship Specialty Start Date End Date Cecilia Ford MD PCP - General 08/07/03 documented as of this encounter
--- OUTSIDE RECORDS SUMMARY | 2025-10-10 16:16 | XMS_ITS | Encounter Summary ---
Author Organization [facility] Address [address] [place] [address] Care Team Providers Care Credit Reference Clerk Name Role Phone Cecilia Ford MD Primary Care Provid er Encounter Details Date Type Department Care Team (Latest Contact Info) Description 06/24/1999 Outpatient Historical [facility] INTER[facility] MED EdinsonIsreal MD NO ADDRESS ON FILE Other chest pain (Primary Dx) Social History Tobacco Use Types Packs/Day Years Used Date Smoking Tobacco: Never Assessed Comments Unknown Sex and Gender Information Value Date Recorded Sex Assigned at Not on file Legal Sex Female 6:34 AM WEIGHT TESTER Gender Identity Not on file Sexual Orientation Not on file documented as of this encounter Plan of Treatment Not on file documented as of this encounter Visit Diagnoses Diagnosis Other chest pain- Primary documented in this encounter Care Teams Credit Reference Clerk Relationship Specialty Start Date End Date Cecilia Ford MD PCP - General 08/07/03 documented as of this encounter
--- OUTSIDE RECORDS SUMMARY | 2025-10-10 16:16 | XMS_ITS | Encounter Summary ---
Author Organization [facility] Address [address] [place] [address] Care Team Providers Care Plaster Form Maker Name Role Phone Cecilia Ford MD Primary Care Provid er Encounter Details Date Type Department Care Team (Late st Contact Info) Description 07/24/2003 Outpatient Historical [facility] Dermatology- [place] 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
--- OUTSIDE RECORDS SUMMARY | 2025-10-10 16:16 | XMS_ITS | Encounter Summary ---
Author Organization [facility] Address [address] [place] [address] Care Team Providers Care Manager Purchasing Name Role Phone Cecilia Ford MD Primary Care Provid er Encounter Details Date Type Department Care Team (Latest Contact Info) Description 08/07/2003 Outpatient Historical [facility] PROVIDER RELATIONS CONSULTANT [address] [place] [phone] Gideon Narayan MD NO ADDRESS ON FILE POLYP OF VAGINA (Primary Dx); Atrophic vaginitis Social History Tobacco Use Types Packs/Day Years Used Date Smoking Tobacco: Never Assessed Comments Unknown Sex and Gender Information Value Date Recorded Sex Assigned at Not on file Legal Sex Female 6:34 AM NEUROLOGY STROKE PHYSICIAN Gender Identity Not on file Sexual Orientation Not on file documented as of this encounter Plan of Treatment Not on file documented as of this encounter Visit Diagnoses Diagnosis Polyp of vagina- Primary Atrophic vaginitis Postmenopausal atrophic vaginitis documented in this encounter Care Teams Manager Purchasing Relationship Specialty Start Date End Date Cecilia Ford MD PCP - General 08/07/03 documented as of this encounter
--- OUTSIDE RECORDS SUMMARY | 2025-10-10 16:16 | XMS_ITS | Encounter Summary ---
Author Organization [facility] Address [address] [place] [address] Care Team Providers Care Electrical Integrator Name Role Phone Cecilia Ford MD Primary Care Provid er Encounter Details Date Type Department Care Team (Late st Contact Info) Description 06/30/2002 Outpatient Historical [facility] Breast [place] [address] [facility] [address] [place] [address] Unique Leon MD NO ADDRESS ON FILE SCREENING MAMM-MAILG NEOPL-OTHER (Primary Dx) Social History Tobacco Use Types Packs/Day Years Used Date Smoking Tobacco: Never Assessed Comments Unknown Sex and Gender Information Value Date Recorded Sex Assigned at Not on file Legal Sex Female 6:34 AM SUPPLY PERSON Gender Identity Not on file Sexual Orientation Not on file documented as of this encounter Plan of Treatment Not on file documented as of this encounter Visit Diagnoses Diagnosis Other screening mammogram- Primary documented in this encounter Care Teams Electrical Integrator Relationship Specialty Start Date End Date Cecilia Ford MD PCP - General 08/07/03 documented as of this encounter
--- OUTSIDE RECORDS SUMMARY | 2025-10-10 16:16 | XMS_ITS | Encounter Summary ---
Author Organization [facility] Address [address] [place] [address] Care Team Providers Care Administrative Court Justice Name Role Phone Cecilia Ford MD Primary Care Provid er Encounter Details Date Type Department Care Team (Latest Contact Info) Description 08/25/2004 Outpatient [facility] Breast Center [facility] [address] [place], [place] [id number] Cecilia Ford MD [address] [facility] [address] [place] [address] SCREENING MAMM-MAILG NEOPL-OTHER (Primary Dx) Social History Tobacco Use Types Packs/Day Years Used Date Smoking Tobacco: Never Assessed Comments Unknown Sex and Gender Information Value Date Recorded Sex Assigned at Not on file Legal Sex Female 6:34 AM HELP DESK REP Gender Identity Not on file Sexual Orientation Not on file documented as of this encounter Plan of Treatment Not on file documented as of this encounter Visit Diagnoses Diagnosis Other screening mammogram- Primary documented in this encounter Care Teams Administrative Court Justice Relationship Specialty Start Date End Date Cecilia Ford MD PCP - General 08/07/03 documented as of this encounter
--- OUTSIDE RECORDS SUMMARY | 2025-10-10 16:16 | XMS_ITS | Encounter Summary ---
Author Organization [facility] Address [address] [facility] Attn: Epic Prelude ADT [place] [address] Care Team Providers Care Job Development Specialist Name Role Phone Cecilia Ford MD Primary Care Provid er Encounter Details Date Type Department Care Team (Late st Contact Info) Description 03/26/2002 Outpatient Historical Gideon Narayan MD NO ADDRESS ON FILE Social History Tobacco Use Types Packs/Day Years Used Date Smoking Tobacco: Never Assessed Comments Unknown Sex and Gender Information Value Date Recorded Sex Assigned at Not on file Legal Sex Female 6:34 AM KAI WHAKARURUHAU Gender Identity Not on file Sexual Orientation Not on file documented as of this encounter Plan of Treatment Not on file documented as of this encounter Visit Diagnoses Not on filedocumented in this encounter Care Teams Job Development Specialist Relationship Specialty Start Date End Date Cecilia Ford MD PCP - General 08/07/03 documented as of this encounter
--- OUTSIDE RECORDS SUMMARY | 2025-10-10 16:16 | XMS_ITS | Encounter Summary ---
Author Organization [facility] Address [address] [facility] Attn: Epic Prelude ADT [place] [address] Care Team Providers Care Body Work Auto Trimmer Name Role Phone Cecilia Ford MD Primary Care Provid er Encounter Details Date Type Department Care Team (Late st Contact Info) Description 06/30/2002 Outpatient Historical Gideon Narayan MD NO ADDRESS ON FILE Social History Tobacco Use Types Packs/Day Years Used Date Smoking Tobacco: Never Assessed Comments Unknown Sex and Gender Information Value Date Recorded Sex Assigned at Not on file Legal Sex Female 6:34 AM COMMUNITY HEALTH CONSULTANT Gender Identity Not on file Sexual Orientation Not on file documented as of this encounter Plan of Treatment Not on file documented as of this encounter Visit Diagnoses Not on filedocumented in this encounter Care Teams Body Work Auto Trimmer Relationship Specialty Start Date End Date Cecilia Ford MD PCP - General 08/07/03 documented as of this encounter
--- OUTSIDE RECORDS SUMMARY | 2025-10-10 16:16 | XMS_ITS | Encounter Summary ---
Author Organization [facility] Address [address] [place] [address] Care Team Providers Care Manager Portable Name Role Phone Cecilia Ford MD Primary Care Provid er Encounter Details Date Type Department Care Team (Latest Contact Info) Description 04/21/2002 Outpatient Historical [facility] LEGAL LIBRARIAN [address] [place] [phone] Gideon Narayan MD NO ADDRESS ON FILE HYPERTROPHY OF UTERUS (Primary Dx); UTERINE LEIOMYOMA NOS Social History Tobacco Use Types Packs/Day Years Used Date Smoking Tobacco: Never Assessed Comments Unknown Sex and Gender Information Value Date Recorded Sex Assigned at Not on file Legal Sex Female 6:34 AM DESIGN TECHNOLOGY TEACHER Gender Identity Not on file Sexual Orientation Not on file documented as of this encounter Plan of Treatment Not on file documented as of this encounter Visit Diagnoses Diagnosis Hypertrophy of uterus- Primary Leiomyoma of uterus, unspecified documented in this encounter Care Teams Manager Portable Relationship Specialty Start Date End Date Cecilia Ford MD PCP - General 08/07/03 documented as of this encounter
--- OUTSIDE RECORDS SUMMARY | 2025-10-10 16:16 | XMS_ITS | Encounter Summary ---
Author Organization [facility] Address [address] [place] [address] Care Team Providers Care Account Processor Name Role Phone Cecilia Ford MD Primary Care Provid er Encounter Details Date Type Department Care Team (Latest Contact Info) Description 04/21/2002 Outpatient Historical [facility] ESCROW CLOSER [address] [place] [address] Gideon Narayan MD NO ADDRESS ON FILE HYPOTHYROIDISM NOS (Primary Dx) Social History Tobacco Use Types Packs/Day Years Used Date Smoking Tobacco: Never Assessed Comments Unknown Sex and Gender Information Value Date Recorded Sex Assigned at Not on file Legal Sex Female 6:34 AM MATERIAL LIAISON Gender Identity Not on file Sexual Orientation Not on file documented as of this encounter Plan of Treatment Not on file documented as of this encounter Visit Diagnoses Diagnosis Unspecified hypothyroidism- Primary documented in this encounter Care Teams Account Processor Relationship Specialty Start Date End Date Cecilia Ford MD PCP - General 08/07/03 documented as of this encounter
--- OUTSIDE RECORDS SUMMARY | 2025-10-10 16:16 | XMS_ITS | Encounter Summary ---
Author Organization [facility] Address [address] [place] [address] Care Team Providers Care Senior Designer Name Role Phone Cecilia Ford MD Primary Care Provid er Encounter Details Date Type Department Care Team (Latest Contact Info) Description 08/15/2002 Outpatient Historical [facility] Internal Medicine- [place] [address] [place] [address] Cecilia Frod MD [address] [place] [address] OTHER MALAISE AND FATIGUE (Primary Dx); ANEMIA NOS; HYPERLIPIDEMIA NEC/NOS; ABN BLOOD CHEMISTRY NEC Social History Tobacco Use Types Packs/Day Years Used Date Smoking Tobacco: Never Assessed Comments Unknown Sex and Gender Information Value Date Recorded Sex Assigned at Not on file Legal Sex Female 6:34 AM MIXING TUMBLER OPERATOR Gender Identity Not on file Sexual Orientation Not on file documented as of this encounter Plan of Treatment Not on file documented as of this encounter Visit Diagnoses Diagnosis Other malaise and fatigue- Primary Anemia, unspecified Other and unspecified hyperlipidemia Other abnormal blood chemistry documented in this encounter Care Teams Senior Designer Relationship Specialty Start Date End Date Cecilia Ford MD PCP - General 08/07/03 documented as of this encounter
--- OUTSIDE RECORDS SUMMARY | 2025-10-10 16:16 | XMS_ITS | Encounter Summary ---
Author Organization [facility] Address [address] [place] [address] Care Team Providers Care Mmi Teacher Name Role Phone Cecilia Ford MD Primary Care Provid er Encounter Details Date Type Department Care Team (Latest Contact Info) Description 12/04/[address] [facility] Cardiology- [place] [address] [place] [address] Gideon Cason MD NO ADDRESS ON FILE PRECORDIAL PAIN (Primary Dx); PALPITATIONS; PAROX TACHYCARDIA NOS (CMS/HCC) Social History Tobacco Use Types Packs/Day Years Used Date Smoking Tobacco: Never Assessed Comments Unknown Sex and Gender Information Value Date Recorded Sex Assigned at Not on file Legal Sex Female 6:34 AM RAIL GANG SUPERVISOR Gender Identity Not on file Sexual Orientation Not on file documented as of this encounter Plan of Treatment Not on file documented as of this encounter Visit Diagnoses Diagnosis Precordial pain- Primary Palpitations Paroxysmal tachycardia, unspecified (CMS/HCC) Paroxysmal tachycardia, unspecified documented in this encounter Care Teams Mmi Teacher Relationship Specialty Start Date End Date Cecilia Ford MD PCP - General 08/07/03 documented as of this encounter
--- OUTSIDE RECORDS SUMMARY | 2025-10-10 16:16 | XMS_ITS | Encounter Summary ---
Author Organization [facility] Address [address] [place] [address] Care Team Providers Care Windows Application Developer Name Role Phone Cecilia Ford MD Primary Care Provid er Encounter Details Date Type Department Care Team (Latest Contact Info) Description 05/29/2001 Outpatient Historical [facility] Internal Medicine- [place] [address] [place] [address] Cecilia Ford MD [address] [place] [address] Mitral valve disorder (Primary Dx); Other and unspecified hyperlipidemia; Myalgia and myositis, unspecified; Encounter for long-term (current) use of other medications Social History Tobacco Use Types Packs/Day Years Used Date Smoking Tobacco: Never Assessed Comments Unknown Sex and Gender Information Value Date Recorded Sex Assigned at Not on file Legal Sex Female 6:34 AM RADIO COMMUNICATIONS MECHANICIAN Gender Identity Not on file Sexual Orientation Not on file documented as of this encounter Plan of Treatment Not on file documented as of this encounter Visit Diagnoses Diagnosis Mitral valve disorder- Primary Mitral valve disorders Other and unspecified hyperlipidemia Myalgia and myositis, unspecified Mylagia and myositis, unspecified Encounter for long-term (current) use of other medications documented in this encounter Care Teams Windows Application Developer Relationship Specialty Start Date End Date Cecilia Ford MD PCP - General 08/07/03 documented as of this encounter
--- OUTSIDE RECORDS SUMMARY | 2025-10-10 16:16 | XMS_ITS | Encounter Summary ---
Author Organization [facility] Address [address] [place] [address] Care Team Providers Care Dining Car Hop Name Role Phone Cecilia Ford MD Primary Care Provid er Encounter Details Date Type Department Care Team (Latest Contact Info) Description 08/07/2003 Outpatient Historical [facility] Breast [place] [address] [facility] [address] [place] [address] Wilian Babb MD NO ADDRESS ON FILE SCREENING MAMM-MAILG NEOPL-OTHER (Primary Dx) Social History Tobacco Use Types Packs/Day Years Used Date Smoking Tobacco: Never Assessed Comments Unknown Sex and Gender Information Value Date Recorded Sex Assigned at Not on file Legal Sex Female 6:34 AM PHOTOVOLTAIC POWER SYSTEMS ENGINEER Gender Identity Not on file Sexual Orientation Not on file documented as of this encounter Plan of Treatment Not on file documented as of this encounter Visit Diagnoses Diagnosis Other screening mammogram- Primary documented in this encounter Care Teams Dining Car Hop Relationship Specialty Start Date End Date Cecilia Ford MD PCP - General 08/07/03 documented as of this encounter
--- OUTSIDE RECORDS SUMMARY | 2025-10-10 16:16 | XMS_ITS | Encounter Summary ---
Author Organization [facility] Address [address] [place] [address] Care Team Providers Care Flattening Press Operator Name Role Phone Cecilia Ford MD Primary Care Provid er Encounter Details Date Type Department Care Team (Latest Contact Info) Description 01/26/2006 Outpatient Historical [facility] Cardiac Label Machine Operator [address] [place] [phone] Gideon Cason MD NO ADDRESS ON FILE Other Chest Pain (Primary Dx) Social History Tobacco Use Types Packs/Day Years Used Date Smoking Tobacco: Never Assessed Comments Unknown Sex and Gender Information Value Date Recorded Sex Assigned at Not on file Legal Sex Female 6:34 AM COW BUYER Gender Identity Not on file Sexual Orientation Not on file documented as of this encounter Plan of Treatment Not on file documented as of this encounter Procedures Procedure Name Priority Date/Time Associated Diagnosis Comments PT AND APTT Routine 01/26/2006 9:10 AM CDT BASIC METABOLIC PANEL Routine 01/26/2006 9:10 AM CDT documented in this encounter Results * PT AND APTT (01/26/2006 9:10 AM CDT) PROTIME 14.1 12.6 - 14.9 Secs INTERFACE SYSTEM Comment: As of 05 note change in normal range. INR 1.0 INTERFACE SYSTEM Comment: Expected Values for INR: DVT/PE Goal INR 2.5; range 2.0 - 3.0 Valve Replacement Tissue Goal INR 2.5; range 2.0 - 3.0 Mechanical Goal INR 3.0; range 2.5 - 3.5 POST-IA Goal INR 2.5; range 2.0 - 3.0 or Goal 3.0; range 2.5 - 3.5 Atrial Fibrillation Goal INR 2.5; range 2.0 - 3.0 Ischemic Stroke Goal INR 2.5; range 2.0 - 3.0 For additional information see Guidelines for Anticoagulation available from the pharmacy Oma[facility] Tejeda PTT 28.5 21.5 - 34.4 Secs INTERFACE SYSTEM Comment: Therapeutic Range: Hi-level PE/DVT heparin protocol 90.1 -110 sec Lo-level PE/DVT heparin protocol 75.1 - 95 sec Cardiac Heparin Protocol 85.1 - 100 sec Neuro Heparin Protocol 70.1 - 85 sec As of 11/15/05 note change in APTT Normal Range. 01/26/2006 9:10 AM CDT Historical Provider HEMATOLOGY ORDERABLES Final Result Performing Organization Address City/[facility] Phone Number INTERFACE SYSTEM Refer to clinic/hospital department * BASIC METABOLIC PANEL (01/26/2006 9:10 AM CDT) GLUCOSE 101 70 - 110 mg/dL INTERFACE SYSTEM BUN 10 7 - 17 mg/dL INTERFACE SYSTEM CREATININE 0.7 0.7 - 1.2 mg/dL INTERFACE SYSTEM SODIUM 140 136 - 145 mEq/L INTERFACE SYSTEM POTASSIUM 3.9 3.5 - 5.0 mEq/L INTERFACE SYSTEM CHLORIDE 105 95 - 110 mEq/L INTERFACE SYSTEM CO2 28 22 - 32 mmol/l INTERFACE SYSTEM ANION GAP 11 9 - 20 mEq/L INTERFACE SYSTEM OSMOLALITY, CALCULATED 287 275 - 295 mOsm/Kg INTERFACE SYSTEM CALCIUM 9.4 8.4 - 10.5 mg/dL INTERFACE SYSTEM 01/26/2006 9:10 AM CDT Historical Provider CHEMISTRY ORDERABLES Final R esult Performing Organization Address City/[facility] de Phone Number INTERFACE SYSTEM Refer to clinic/hospital department documented in this encounter Visit Diagnoses Diagnosis Other chest pain- Primary documented in this encounter Care Teams Flattening Press Operator Relationship Specialty Start Date End Date Cecilia Ford MD PCP - General 08/07/03 documented as of this encounter
--- OUTSIDE RECORDS SUMMARY | 2025-10-10 16:16 | XMS_ITS | Encounter Summary ---
Author Organization [facility] Address [address] [place] [address] Care Team Providers Care Design Supervisor Name Role Phone Cecilia Ford MD Primary Care Provid er Encounter Details Date Type Department Care Team (Latest Contact Info) Description 12/04/2005 Outpatient Historical [facility] Cardiovascular Services [address] [place] [phone] Gideon Cason MD NO ADDRESS ON FILE PALPITATIONS (Primary Dx) Social History Tobacco Use Types Packs/Day Years Used Date Smoking Tobacco: Never Assessed Comments Unknown Sex and Gender Information Value Date Recorded Sex Assigned at Not on file Legal Sex Female 6:34 AM UROLOGY PHYSICIAN ASSISTANT Gender Identity Not on file Sexual Orientation Not on file documented as of this encounter Plan of Treatment Not on file documented as of this encounter Visit Diagnoses Diagnosis Palpitations- Primary documented in this encounter Care Teams Design Supervisor Relationship Specialty Start Date End Date Cecilia Ford MD PCP - General 08/07/03 documented as of this encounter
--- OUTSIDE RECORDS SUMMARY | 2025-10-10 16:16 | XMS_ITS | Encounter Summary ---
Author Organization [facility] Address [address] [place] [address] Care Team Providers Care Contractor Field Hauling Name Role Phone Cecilia Ford MD Primary Care Provid er Encounter Details Date Type Department Care Team (Latest Contact Info) Description 09/04/2003 Outpatient Historical [facility] THERAPY DIRECTOR [address] [place] [address] Gideon Narayan MD NO ADDRESS ON FILE Gynecologic examination (Primary Dx); POLYP OF VAGINA Social History Tobacco Use Types Packs/Day Years Used Date Smoking Tobacco: Never Assessed Comments Unknown Sex and Gender Information Value Date Recorded Sex Assigned at Not on file Legal Sex Female 6:34 AM PAPER BAG INSPECTOR Gender Identity Not on file Sexual Orientation Not on file documented as of this encounter Plan of Treatment Not on file documented as of this encounter Visit Diagnoses Diagnosis Gynecologic examination- Primary Gynecological examination Polyp of vagina documented in this encounter Care Teams Contractor Field Hauling Relationship Specialty Start Date End Date Cecilia Ford MD PCP - General 08/07/03 documented as of this encounter
--- OUTSIDE RECORDS SUMMARY | 2025-10-10 16:16 | XMS_ITS | Encounter Summary ---
Author Organization [facility] Address [address] [place] [address] Care Team Providers Care Clinic Charge Nurse Name Role Phone Cecilia Ford MD Primary Care Provid er Encounter Details Date Type Department Care Team (Latest Contact Info) Description 08/21/2003 Outpatient Historical [facility] Internal Medicine- [place] [address] [place] [phone] Cecilia Ford MD [address] [place] [address] HYPERLIPIDEMIA NEC/NOS (Primary Dx); Mitral valve disorder Social History Tobacco Use Types Packs/Day Years Used Date Smoking Tobacco: Never Assessed Comments Unknown Sex and Gender Information Value Date Recorded Sex Assigned at Not on file Legal Sex Female 6:34 AM COUNCILMAN Gender Identity Not on file Sexual Orientation Not on file documented as of this encounter Plan of Treatment Not on file documented as of this encounter Visit Diagnoses Diagnosis Other and unspecified hyperlipidemia- Primary Mitral valve disorder Mitral valve disorders documented in this encounter Care Teams Clinic Charge Nurse Relationship Specialty Start Date End Date Cecilia Ford MD PCP - General 08/07/03 documented as of this encounter
--- OUTSIDE RECORDS SUMMARY | 2025-10-10 16:16 | XMS_ITS | Encounter Summary ---
Author Organization [facility] Address [address] [place] [address] Care Team Providers Care Metallurgy Teacher Name Role Phone Cecilia Ford MD Primary Care Provid er Encounter Details Date Type Department Care Team (Latest Contact Info) Description 06/30/2002 Outpatient Historical [facility] SKIVER OPERATOR [address] [place] [address] Gideon Narayan MD NO ADDRESS ON FILE SURGERY FOLLOWUP, UNSPEC (Primary Dx) Social History Tobacco Use Types Packs/Day Years Used Date Smoking Tobacco: Never Assessed Comments Unknown Sex and Gender Information Value Date Recorded Sex Assigned at Not on file Legal Sex Female 6:34 AM DIGITAL MEDIA DIRECTOR Gender Identity Not on file Sexual Orientation Not on file documented as of this encounter Plan of Treatment Not on file documented as of this encounter Visit Diagnoses Diagnosis Follow-up examination, following unspecified surgery- Primary documented in this encounter Care Teams Metallurgy Teacher Relationship Specialty Start Date End Date Cecilia Ford MD PCP - General 08/07/03 documented as of this encounter
--- OUTSIDE RECORDS SUMMARY | 2025-10-10 16:16 | XMS_ITS | Encounter Summary ---
Author Organization [facility] Address [address] [place] [address] Care Team Providers Care Suede Cleaner Name Role Phone Cecilia Ford MD Primary Care Provid er Encounter Details Date Type Department Care Team (Latest Contact Info) Description 08/28/2005 Outpatient Historical [facility] Nuclear Med Services[place] [address] [place] [address] Fadi Olivas MD [address] [address] [place] [address] CHEST PAIN NEC (Primary Dx); MALAISE AND FATIGUE NEC; PALPITATIONS Social History Tobacco Use Types Packs/Day Years Used Date Smoking Tobacco: Never Assessed Comments Unknown Sex and Gender Information Value Date Recorded Sex Assigned at Not on file Legal Sex Female 6:34 AM GROUP DIRECTOR EXPERIENCE Gender Identity Not on file Sexual Orientation Not on file documented as of this encounter Plan of Treatment Not on file documented as of this encounter Visit Diagnoses Diagnosis Other chest pain- Primary Other malaise and fatigue Palpitations documented in this encounter Care Teams Suede Cleaner Relationship Specialty Start Date End Date Cecilia Ford MD PCP - General 08/07/03 documented as of this encounter
--- OUTSIDE RECORDS SUMMARY | 2025-10-10 16:16 | XMS_ITS | Encounter Summary ---
Author Organization Address [facility] Attn: Epic Prelude ADT [place] [address] Care Team Providers Care Mexican Food Cook Name Role Phone Cecilia Ford MD Primary Care Provid er Encounter Details Date Type Department Care Team (Late st Contact Info) Description 05/15/2002 Inpatient Historical Gideon Narayan MD NO ADDRESS ON FILE Social History Tobacco Use Types Packs/Day Years Used Date Smoking Tobacco: Never Assessed Comments Unknown Sex and Gender Information Value Date Recorded Sex Assigned at Not on file Legal Sex Female 6:34 AM SOFTWARE IMPLEMENTATION SPECIALIST Gender Identity Not on file Sexual Orientation Not on file documented as of this encounter Plan of Treatment Not on file documented as of this encounter Visit Diagnoses Not on filedocumented in this encounter Care Teams Mexican Food Cook Relationship Specialty Start Date End Date Cecilia Ford MD PCP - General 08/07/03 documented as of this encounter
--- OUTSIDE RECORDS SUMMARY | 2025-10-10 16:16 | XMS_ITS | Encounter Summary ---
Author Organization [facility] Address [address] [place] [address] Care Team Providers Care Physical Instructor Name Role Phone Cecilia Ford MD Primary Care Provid er Encounter Details Date Type Department Care Team (Late st Contact Info) Description 09/04/2003 Outpatient Historical [facility] Gideon Narayan MD NO ADDRESS ON FILE Social History Tobacco Use Types Packs/Day Years Used Date Smoking Tobacco: Never Assessed Comments Unknown Sex and Gender Information Value Date Recorded Sex Assigned at Not on file Legal Sex Female 6:34 AM PARALEGAL INSTRUCTOR Gender Identity Not on file Sexual Orientation Not on file documented as of this encounter Plan of Treatment Not on file documented as of this encounter Visit Diagnoses Not on filedocumented in this encounter Care Teams Physical Instructor Relationship Specialty Start Date End Date Cecilia Ford MD PCP - General 08/07/03 documented as of this encounter
--- OUTSIDE RECORDS SUMMARY | 2025-10-10 16:16 | XMS_ITS | Encounter Summary ---
Author Organization [facility] Address [address] [place] [address] Care Team Providers Care Recreational Director Name Role Phone Cecilia Ford MD Primary Care Provid er Encounter Details Date Type Department Care Team (Latest Contact Info) Description 12/24/2003 Outpatient Historical [facility] Internal Medicine- [place] [address] [place] [address] Cecilia Ford MD [address] [place] [address] MASTODYNIA (Primary Dx); PAINFUL RESPIRATION Social History Tobacco Use Types Packs/Day Years Used Date Smoking Tobacco: Never Assessed Comments Unknown Sex and Gender Information Value Date Recorded Sex Assigned at Not on file Legal Sex Female 6:34 AM MOBILE PET GROOMER Gender Identity Not on file Sexual Orientation Not on file documented as of this encounter Plan of Treatment Not on file documented as of this encounter Visit Diagnoses Diagnosis Mastodynia- Primary Painful respiration documented in this encounter Care Teams Recreational Director Relationship Specialty Start Date End Date Cecilia Ford MD PCP - General 08/07/03 documented as of this encounter
--- OUTSIDE RECORDS SUMMARY | 2025-10-10 16:16 | XMS_ITS | Encounter Summary ---
Author Organization [facility] Address [address] [place] [address] Care Team Providers Care Jack Prizer Name Role Phone Cecilia Ford MD Primary Care Provid er Encounter Details Date Type Department Care Team (Latest Contact Info) Description 09/02/1999 Outpatient Historical [facility] INTERNAL MED EdinsonIsreal MD NO ADDRESS ON FILE Abdominal pain, unspecified site (Primary Dx); Esophageal reflux; Myalgia and myositis, unspecified Social History Tobacco Use Types Packs/Day Years Used Date Smoking Tobacco: Never Assessed Comments Unknown Sex and Gender Information Value Date Recorded Sex Assigned at Not on file Legal Sex Female 6:34 AM [employer]ANOS [employer] SALESPERSON Gender Identity Not on file Sexual Orientation Not on file documented as of this encounter Plan of Treatment Not on file documented as of this encounter Visit Diagnoses Diagnosis Abdominal pain, unspecified site- Primary Esophageal reflux Myalgia and myositis, unspecified Mylagia and myositis, unspecified documented in this encounter Care Teams Jack Prizer Relationship Specialty Start Date End Date Cecilia Ford MD PCP - General 08/07/03 documented as of this encounter
--- OUTSIDE RECORDS SUMMARY | 2025-10-10 16:16 | XMS_ITS | Encounter Summary ---
Author Organization [facility] Address [address] [place] [address] Care Team Providers Care Asphalt Coater Name Role Phone Cecilia Ford MD Primary Care Provid er Encounter Details Date Type Department Care Team (Latest Contact Info) Description 05/19/2002 Outpatient Historical [facility] DOCTOR OF NAPRAPATHIC MEDICINE [address] [place] [address] Gideon Narayan MD NO ADDRESS ON FILE UTERINE LEIOMYOMA NOS (Primary Dx); UTEROVAG PROLAPS-INCOMPL; FEMALE GENITAL SYMPTOMS NOS; DYSMENORRHEA Social History Tobacco Use Types Packs/Day Years Used Date Smoking Tobacco: Never Assessed Comments Unknown Sex and Gender Information Value Date Recorded Sex Assigned at Not on file Legal Sex Female 6:34 AM DOCKET CLERK Gender Identity Not on file Sexual Orientation Not on file documented as of this encounter Plan of Treatment Not on file documented as of this encounter Visit Diagnoses Diagnosis Leiomyoma of uterus, unspecified- Primary Uterovaginal prolapse, incomplete Unspecified symptom associated with female genital organs Dysmenorrhea documented in this encounter Care Teams Asphalt Coater Relationship Specialty Start Date End Date Cecilia Ford MD PCP - General 08/07/03 documented as of this encounter
--- OUTSIDE RECORDS SUMMARY | 2025-10-10 16:16 | XMS_ITS | Encounter Summary ---
Author Organization [facility] Address [address] [place] [address] Care Team Providers Care Automatic Beading Lathe Operator Name Role Phone Cecilia Ford MD Primary Care Provid er Encounter Details Date Type Department Care Team (Latest Contact Info) Description 08/25/2004 Outpatient Historical [facility] Internal Medicine- [place] [address] [place] [address] Cecilia Ford MD [address] [place] [address] HYPERLIPIDEMIA NEC/NOS (Primary Dx) Social History Tobacco Use Types Packs/Day Years Used Date Smoking Tobacco: Never Assessed Comments Unknown Sex and Gender Information Value Date Recorded Sex Assigned at Not on file Legal Sex Female 6:34 AM SCREEN PRINTING SUPERVISOR Gender Identity Not on file Sexual Orientation Not on file documented as of this encounter Plan of Treatment Not on file documented as of this encounter Visit Diagnoses Diagnosis Other and unspecified hyperlipidemia- Primary documented in this encounter Care Teams Automatic Beading Lathe Operator Relationship Specialty Start Date End Date Cecilia Ford MD PCP - General 08/07/03 documented as of this encounter
--- OUTSIDE RECORDS SUMMARY | 2025-10-10 16:16 | XMS_ITS | Encounter Summary ---
Author Organization [facility] Address [address] [place] [address] Care Team Providers Care Apparatus Engineering Technologist Name Role Phone Cecilia Ford MD Primary Care Provid er Encounter Details Date Type Department Care Team (Late st Contact Info) Description 08/25/2004 Outpatient Historical [facility] Breast [place] [address] [facility] [address] [place] [address] Unique Leon MD NO ADDRESS ON FILE SCREENING MAMM-MAILG NEOPL-OTHER (Primary Dx) Social History Tobacco Use Types Packs/Day Years Used Date Smoking Tobacco: Never Assessed Comments Unknown Sex and Gender Information Value Date Recorded Sex Assigned at Not on file 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
--- OUTSIDE RECORDS SUMMARY | 2025-10-10 16:16 | XMS_ITS | Encounter Summary ---
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
--- OUTSIDE RECORDS SUMMARY | 2025-10-10 16:16 | XMS_ITS | Encounter Summary ---
Author Organization [facility] Address [address] [place] [address] Care Team Providers Care Entertainment Director Name Role Phone Cecilia Ford MD Primary Care Provid er Encounter Details Date Type Department Care Team (Latest Contact Info) Description 06/13/2002 Outpatient Historical [facility] [place] [place] WEALTH MANAGEMENT ADVISOR 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
--- OUTSIDE RECORDS SUMMARY | 2025-10-10 16:16 | XMS_ITS | Encounter Summary ---
Author Organization [facility] Address [address] [place] [address] Care Team Providers Care Product Development Engineer Name Role Phone Cecilia Ford MD Primary Care Provid er Encounter Details Date Type Department Care Team (Latest Contact Info) Description 04/11/1999 Outpatient Historical [facility] INTERNAL MED EdinsonIsreal MD NO ADDRESS ON FILE Pure hypercholesterolem (Primary Dx); Dizziness and giddiness Social History Tobacco Use Types Packs/Day Years Used Date Smoking Tobacco: Never Assessed Comments Unknown Sex and Gender Information Value Date Recorded Sex Assigned at Not on file 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
--- OUTSIDE RECORDS SUMMARY | 2025-10-10 16:16 | XMS_ITS | Encounter Summary ---
Author Organization [facility] Address [address] [facility] Attn: Epic Prelude ADT NABIL GUILLORY [address] Care Team Providers Care Education And Outreach Coordinator Name Role Phone Cecilia Ford MD Primary Care Provid er Encounter Details Date Type Department Care Team (Late st Contact Info) Description 04/29/2002 Outpatient Historical Gideon Narayan MD NO ADDRESS ON FILE Social History Tobacco Use Types Packs/Day Years Used Date Smoking Tobacco: Never Assessed Comments Unknown Sex and Gender Information Value Date Recorded Sex Assigned at Not on file Legal Sex Female 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
--- NOTE | 2025-10-10 16:17 | ECG_ITS ---
[facility] Pat Name: Unique Goodman Department: Room: Gender: Female Draw Press Operator: : [id number] Requested By: Liz Ramos Order Number: [id number] Akil MD: DAIJA RAMOS Measurements Intervals [place] Rate: 73 P: 69 UT: 192 QRS: 45 QRSD: 92 T: 55 QT: 385 QTc: 426 Interpretive Statements SINUS RHYTHM No previous ECG available for comparison Electronically Signed On 10-13-2025 12:06:14 WELLNESS PROGRAM MANAGER by DAIJA RAMOS [email or web address]
--- NOTE | 2025-10-10 16:41 | W.ED.CHESTPA ---
HPI - Chest Pain General: Chief Complaint: Chest Pain Stated Complaint: chest pain Time Seen by Provider: 10/10/25 16:28 History of Present Illness: Patient is a 75-year-old female with history of A-fib on aspirin, metoprolol succinate, presents to the emergency room due to chest tightness. Context: This started last p.m. It feels like her chest is tight. It is worse with a deep breath and leaning forward. She had a cold last week, however no issues this week. Nonproductive occasional cough. Never smoker. She feels as if it is difficult to take a deep breath as well. No diaphoresis. No nausea. Patient is established with Dr. Ashton at [facility] cardiology. She had a stress test approximately 6 months ago that was negative. This was a chemical stress test. Associated symptoms: Reports dyspnea; Deny abdominal pain, fever(s), nausea, palpitations or vomiting Related Data Home Medications ?Medication ?Instructions ?Recorded ?Confirmed alprazolam 0.25 mg tablet 0.25 mg PO TID PRN 05/17/20 11/20/23 atorvastatin 10 mg tablet (Lipitor) 10 mg PO DAILY 05/17/20 11/20/23 cholecalciferol (vitamin D3) 25 1,000 unit PO DAILY 05/17/20 11/20/23 mcg (1,000 unit) capsule imipramine HCl 10 mg tablet 50 mg PO DAILY 05/17/20 11/20/23 mecobalamin (vitamin B12) 1,000 1,000 mcg PO DAILY 05/17/20 11/20/23 mcg chewable tablet aspirin 81 mg tablet,delayed 81 mg PO DAILY 07/22/20 11/20/23 release (Adult Aspirin Regimen) imipramine HCl 50 mg tablet 10 mg PO DAILY 07/22/20 11/20/23 metoprolol succinate 50 mg 150 mg PO DAILY 06/23/21 11/20/23 tablet,extended release 24 hr Previous Rx's ?Medication ?Instructions ?Recorded magnesium oxide 400 mg PO DAILY #90 tabs 07/22/20 diclofenac sodium 75 mg 75 mg PO BID #60 tabs 11/20/23 tablet,delayed release prednisone 10 mg tablets in a dose See Rx Instructions PO PER PKG DIR 12/21/23 pack #21 ea Allergies Allergy/AdvReac Type Severity Reaction Status Date / Time Sulfa (Sulfonamide Allergy Unknown Unknown Verified 11/20/23 08:57 Antibiotics) Review of Systems General: Reports: 10 or more systems reviewed and unremarkable except in HPI and below Const: Denies: fever(s), chills, body aches or change in appetite Eyes: Denies: change in vision, eye discharge or eye redness ENMT: Denies: throat pain, hoarseness, ear or mastoid pain, ear discharge, nasal discharge or nasal congestion Card: Reports: chest pain and irregular heart rhythm; Denies: palpitations or edema Resp: Reports: dyspnea, non-productive cough and pain on inspiration; Denies: productive cough, wheezing, change in phlegm color, hemoptysis or chest congestion GI: Denies: abdominal pain, nausea, vomiting, diarrhea, constipation or hematochezia : Denies: difficulty voiding, dysuria, urinary frequency, urinary urgency, urinary hesitancy or hematuria Musc: Denies: joint swelling, joint redness, joint warmth or joint stiffness Skin/Breast: Denies: rash Neuro: Denies: headache(s) Psych: Denies: suicidal ideation or homicidal ideation [place]/Lymph: Denies: enlarged lymph nodes or tender lymph nodes PFSH ED PFSH: Medical History (Updated 10/10/25 @ 18:12 by CROW Vogel) Atrial fibrillation Anxiety and depression HTN (hypertension) Surgical History S/P hysterectomy Family History Father Myocardial infarction Sister Atrial fibrillation Social History Smoking and tobacco/nicotine status: never used tobacco/nicotine Second hand smoke exposure: No Alcohol intake: never Substance/Drug Use: never Adopted: No Caregiver/support person: No Lives independently: Yes Household members: spouse Housing: House Marital status: Physical Exam Const: COMMON NORMALS: no acute distress and patient oriented x3 GENERAL APPEARANCE: cooperative HENMT: COMMON NORMALS: normocephalic, moist oral mucous membranes and oropharynx normal HEAD & SCALP: normocephalic NOSE: No nasal discharge present THROAT: tonsils normal Eye: COMMON NORMALS: Equal, round and reactive pupils present GENERAL EYE: appearance normal, both eyes and all related structures PUPIL: Yes Equal, round and reactive pupils present Neck/C-Spine: GENERAL: Yes normal visual inspection CERVICAL SPINE: Yes cervical ROM normal and No Cervical spine tenderness Lymph: LYMPHATIC: no lymphadenopathy noted Chest: COMMONS NORMALS: normal inspection of the chest Resp: COMMON NORMALS: normal respiratory effort and clear to auscultation bilaterally AUSCULTATION: clear to auscultation bilaterally and bronchial breath sounds bilateral Cardio: COMMON NORMALS: regular rate and regular rhythm RATE: regular rate RHYTHM: regular rhythm HEART SOUNDS: Murmur heart sound present systolic GI: COMMON NORMALS: Normal to inspection, nondistended, normoactive bowel sounds present, Soft to palpation, non-tender and No hepatosplenomegaly present PALPATION: Yes Soft to palpation and Yes No hepatosplenomegaly present : COMMON NORMALS: Yes no CVA tenderness BLADDER/KIDNEY EXAM: Yes no CVA tenderness Back/Pelvis: COMMON NORMALS: no CVA tenderness and thoracic and lumbar spine normal to inspection Extremity: GENERAL: No cyanosis and No edema Neuro: COMMON NORMALS: patient oriented x3, moves all extremities, no focal motor deficits and gait normal SPEECH: speech normal Psych: COMMON NORMALS: mental status grossly normal Skin: COMMON NORMALS: no rashes or lesions noted and no wounds GENERAL SKIN EXAM: no rashes or lesions noted Course Vital Signs: Vital signs: Vital Signs Temperature 98.1 F 10/10/25 16:15 Pulse Rate 80 10/10/25 18:50 Respiratory Rate 18 10/10/25 18:30 Blood Pressure 155/79 10/10/25 18:50 Pulse Oximetry 95 10/10/25 18:50 Oxygen Delivery Me thod Room Air 10/10/25 16:15 MDM - Chest Pain Medical Decision Making Patient is a pleasant 75-year-old female with A-fib, compliant to her medications metoprolol, and aspirin. 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 She started having chest tightness that occurred last night. She was ruled out from a cardiac standpoint. She did have a cold last week. I do believe this is viral in nature. I did give patient dexamethasone x 1. On physical examination, she had bronchial breath sounds, which is the most likely culprit. I do suspect an underlying postviral syndrome. All of this explained to patient in layman's terms. Patient already consumed 324 mg of aspirin at home. Medical Records I reviewed the patient's medical records. Lab Data I reviewed the patient's lab results. 10/10/25 16:37 10/10/25 16:37 Radiology Impressions Chest X-Ray 10/10/25 18:12 IMPRESSION: No acute findings. Laboratory Results WBC 7.90 10^3/uL (3.29-11.43) 10/10/25 16:37 RBC 4.55 10^6/uL (3.85-5.65) 10/10/25 16:37 Hgb 12.80 g/dL (11.27-16.99) 10/10/25 16:37 Hct 39.6 % (36-47) 10/10/25 16:37 MCV 87.0 fl (85-98) 10/10/25 16:37 MCH 28.1 pg (27-33) 10/10/25 16:37 MCHC 32.3 g/dL (30-55) 10/10/25 16:37 RDW 13.2 % (12.1-15.1) 10/10/25 16:37 Plt Count 249 10^3/cmm (157-399) 10/10/25 16:37 MPV 9.6 fL (7.4-10.4) 10/10/25 16:37 Neut % (Auto) 62.5 % 10/10/25 16:37 Lymph % (Auto) 24.1 % 10/10/25 16:37 [place] % (Auto) 10.0 % 10/10/25 16:37 Eos % (Auto) 2.2 % 10/10/25 16:37 Baso % (Auto) 0.8 % 10/10/25 16:37 Neut # (Auto) 4.95 10^3/uL (1.8-7.7) 10/10/25 16:37 Lymph # (Auto) 1.9 10^3/uL (0.8-4.8) 10/10/25 16:37 [place] # (Auto) 0.8 10^3/uL (0.2-0.9) 10/10/25 16:37 Eos # (Auto) 0.2 10^3/uL (0.0-0.8) 10/10/25 16:37 Baso # (Auto) 0.1 10^3/uL (0.0-0.1) 10/10/25 16:37 Nucleated RBC % (auto) 0 % 10/10/25 16:37 Nucleated RBCs # 0.0 /100WBC 10/10/25 16:37 Sodium 137 mmol/L (136-145) 10/10/25 16:37 Potassium 4.4 mmol/L (3.5-5.1) 10/10/25 16:37 Chloride 100 mmol/L (98-107) 10/10/25 16:37 Carbon Dioxide 26 mmol/L (22-29) 10/10/25 16:37 Anion Gap 15.4 (5-19) 10/10/25 16:37 BUN 12 mg/dL (8-23) 10/10/25 16:37 Creatinine 0.9 mg/dL (0.5-0.9) 10/10/25 16:37 GFR Calculation Not Reportable 10/10/25 16:37 Glucose 99 mg/dL (65-115) 10/10/25 16:37 Calculated Osmolality 284 mOsm/kg (285-295) L 10/10/25 16:37 Calcium 9.5 mg/dL (8.5-10.5) 10/10/25 16:37 Total Bilirubin 0.4 mg/dL (0.15-1.2) 10/10/25 16:37 AST 15 U/L (0-32) 10/10/25 16:37 ALT 15 U/L (0-33) 10/10/25 16:37 Alkaline Phosphatase 100 U/L (35-105) 10/10/25 16:37 Troponin T Baseline 11 ng/L (0-10) H 10/10/25 16:37 Troponin T 60 Minute 7.63 ng/L (0-10) 10/10/25 17:47 Delta Troponin T -3.37 ABS# (0-10) L 10/10/25 17:47 NT-Pro-B Natriuret Pep 98 pg/mL (0-125) 10/10/25 16:37 Total Protein 6.7 g/dL (6.6-8.7) 10/10/25 16:37 Albumin 4.3 g/dL (3.5-5.2) 10/10/25 16:37 Globulin 2.4 g/dL (1.3-4.6) 10/10/25 16:37 Influenza A (PCR) Negative (Negative) 10/10/25 17:00 Influenza Type B (PCR) Negative (Negative) 10/10/25 17:00 RSV (PCR) Negative (Negative) 10/10/25 17:00 SARS-CoV-2 (PCR) Negative (Negative) 10/10/25 17:00 All radiology interpretation(s) finalized by discharge EKG Data EKG 1: Interpretation: Normal sinus rhythm, normal axis, is allergic ST segment Discharge Plan Discharge Patient Disposition: Home Clinical Impression: Atypical chest pain Condition: Stable Prescriptions: No Action alprazolam 0.25 mg tablet 0.25 mg PO TID PRN imipramine HCl 10 mg tablet 50 mg PO DAILY atorvastatin [Lipitor] 10 mg tablet 10 mg PO DAILY mecobalamin (vitamin B12) 1,000 mcg tablet,chewable 1,000 mcg PO DAILY cholecalciferol (vitamin D3) 25 mcg (1,000 unit) capsule 1,000 unit PO DAILY imipramine HCl 50 mg tablet 10 mg PO DAILY aspirin [Adult Aspirin Regimen] 81 mg tablet,delayed release (DR/EC) 81 mg PO DAILY magnesium oxide 400 mg magnesium tablet 400 mg PO DAILY Qty: 90 3RF metoprolol succinate 50 mg tablet extended release 24 hr 150 mg PO DAILY diclofenac sodium 75 mg tablet,delayed release (DR/EC) 75 mg PO BID Qty: 60 5RF prednisone 10 mg tablets,dose pack See Rx Instructions PO PER PKG DIR Qty: 21 0RF Rx Instructions: PO PER PKG DIR Discharge Orders: Discharge ED (Routine); Ordered 10/10/25 Ordered By: Baylee Tan Referrals: Chan Hagen MD [Primary Care Provider, Family Practice] Patient Instructions: Viral Syndrome (ED), Noncardiac Chest Pain (ED), Patient Portal & Ryan Instructions Activity Restrictions/Additional Instructions: - No additional concerns overnight on your workup today - This appears to be associated with your recent viral illness. - Follow-up with your doctor. - Return to the emergency room with worsening symptoms, fever greater than 100.4, shortness of breath, chest pain tightness. Thank you for choosing [facility] for your healthcare needs today. You have been screened and evaluated and felt safe for discharge. Health conditions do change or evolve sometimes and as such it is important that you follow up with your Primary Doctor to be re checked, 3-5 days is a general good time frame for follow up. You are always welcome to return to the ED for re assessment if your symptoms are worsening or you have new concerns Print Language: Swazi Coding Level of Care Code ED Inspector Receiving for Morg Fwradha Heart Score HEART Score Components History: Slightly Suspicous EKG: Normal Age: 65 or more yrs Risk Factors: 1 or 2 Risk Factors Troponin: Baseline Trop <16 ng/L HEART Score RESULT HEART Score: 3
[2025-10-10 16:46] LABS: Hematocrit 39.6 % (36-47); Hemoglobin 12.80 g/dL (11.27-16.99); Mean Corpuscular HGB Conc 32.3 g/dL (30-55); Mean Corpuscular Hemoglobin 28.1 pg (27-33); Mean Corpuscular Volume 87.0 fl (85-98); Nucleated Red Blood Cells % 0 %; Platelet Count 249 10^3/cmm (157-399); Red Blood Count 4.55 10^6/uL (3.85-5.65); White Blood Count 7.90 10^3/uL (3.29-11.43)
[2025-10-10 17:03] LABS: Troponin(5th) Baseline 11 ng/L (0-10)
--- NOTE | 2025-10-10 17:22 | ECG_ITS ---
[facility] Test Date: 2025-10-10 Pat Name: Unique Goodman Department: Room: Gender: Female Public Welfare Director: : 1950 Requested By: Liz Ramos Order Number: [id number] Reading MD: Measurements Intervals [place] Rate: 71 P: 59 ID: [id number] QRS: 26 QRSD: 94 T: 54 QT: 391 QTc: 425 Interpretive Statements SINUS RHYTHM [email or web address]
[2025-10-10 17:23] LABS: Alanine Aminotransferase 15 U/L (0-33); Albumin Level 4.3 g/dL (3.5-5.2); Alkaline Phosphatase 100 U/L (35-105); Anion Gap 15.4 (5-19); Aspartate Amino Transferase 15 U/L (0-32); Blood Urea Nitrogen 12 mg/dL (8-23); Calcium 9.5 mg/dL (8.5-10.5); Carbon Dioxide 26 mmol/L (22-29); Chloride 100 mmol/L (98-107); Globulin 2.4 g/dL (1.3-4.6); Glucose 99 mg/dL (65-115); NT Pro B Type Natriuretic Pept 98 pg/mL (0-125); Osmolality Calculated 284 mOsm/kg (285-295); Potassium 4.4 mmol/L (3.5-5.1); Sodium 137 mmol/L (136-145); Total Protein 6.7 g/dL (6.6-8.7)
[2025-10-10 18:02] LABS: Respiratory Syncytial Virus Ce NEGATIVE (Negative); SARS-CoV-2 PCR NEGATIVE (Negative)
--- NOTE | 2025-10-10 18:12 | XRR_ITS ---
PROCEDURE INFORMATION: Exam: XR Chest Exam date and time: 10/10/2025 6:20 PM Age: 75 years old Clinical indication: Chest pressure; C/O chest pain. PT stated her symptoms started last night. PT stated she sees a cardio Dr in [place]. PT stated her pain is tolerable but not normal. TECHNIQUE: Imaging protocol: Radiologic exam of the chest. Views: 1 view. COMPARISON: MR shoulder RT wo con* [id number] 01/03/2024 11:49 AM FINDINGS: Lungs: Unremarkable. No consolidation. Pleural spaces: Unremarkable. No pleural effusion. No pneumothorax. Heart/Mediastinum: Unremarkable. No cardiomegaly. Bones/joints: Unremarkable. XR/XR chest 1V portable [id number] IMPRESSION: No acute findings.
== END 2025-10-10 18:50 | disposition home or self-care (01) ==
PROVIDERS: Emergency Medicine; Emergency Provider Physician Assistant; PCP Family Medicine
DX: R07.89 Other chest pain (principal); Z79.82 Long term (current) use of aspirin; Z11.52 Encounter for screening for COVID-19; I10 Essential (primary) hypertension
CPT/HCPCS: 36415; 71045; 80053; 83880; 84484; 85025; 87637; 93005; 96374; 99285; J1100